=== PATIENT | female | born 1990 | race Caucasian/White ===

== ENCOUNTER → 2018-06-26 16:41 | Outpatient (CLI) | payer OTHER, SELFPAY ==
[2018-06-26 19:06] LABS: Color, Urine Yellow (Yellow); Glucose, Dipstick Normal (Normal); Ketone-Dipstick Negative (Negative); Leukocyte Esterase-Dipstick 500 /ul (Negative); Nitrite-Dipstick Negative (Negative); Occult Blood-Urine 10 /ul (Negative); Protein-Dipstick Negative (Negative); Urine Bilirubin Dipstick Negative (Negative); Urine Clarity Clear (Clear); Urine Urobilinogen Normal (Normal)
[2018-06-26 19:13] LABS: White Blood Cells 50-100 SEEN /hpf (0-5)
[2018-06-26 19:14] LABS: Squamous Epithelial Cells - UA 0-5 SEEN /hpf (5-10)
[2018-06-26 19:15] LABS: Bacteria 1+ /hpf (None Seen); Mucous, Urine 1+ /hpf (<or=2+); Red Blood Cells-Urine 0-5 SEEN /hpf (0-5)
== END ==
PROVIDERS: Visit Provider Physician Assistant Surgical
DX: R39.15 Urgency of urination (principal); R30.0 Dysuria
CPT/HCPCS: 81001; 87086; 87088; 87186

== ENCOUNTER → 2018-06-29 11:54 | Outpatient (CLI) | payer OTHER, SELFPAY ==
[2018-06-29 13:24] LABS: hCG Titer Quant., Serum 80 mIU/mL (<9 non-preg)
== END ==
PROVIDERS: Visit Provider Obstetrics & Gynecology
DX: N91.2 Amenorrhea, unspecified (principal)
CPT/HCPCS: 36415; 84702

== ENCOUNTER → 2018-07-01 16:07 | Outpatient (CLI) | payer OTHER, SELFPAY ==
[2018-07-01 18:33] LABS: hCG Titer Quant., Serum 218 mIU/mL (<9 non-preg)
== END ==
PROVIDERS: Visit Provider Obstetrics & Gynecology
DX: N91.2 Amenorrhea, unspecified (principal)
CPT/HCPCS: 36415; 84702

== ENCOUNTER → 2018-07-31 11:53 | Outpatient (CLI) | payer OTHER, SELFPAY ==
--- NOTE | 2018-07-31 11:57 | US_ITS ---
STUDY: FIRST TRIMESTER OBSTETRICAL ULTRASOUND REASON FOR EXAM: Female, 27 years old. VIABILITY- LMP UNKNOWN- SPOTTING LMP: TECHNIQUE: Transvaginal TECHNICAL QUALITY: Adequate. PRIOR ULTRASOUND: None. FINDINGS: There is visualization of a single gestational sac in a normal intrauterine position. The mean sac diameter (MSD) measures 16mm, indicating an estimated gestational age (EGA) of 6 weeks, 4 days. The gestational sac shape is within normal limits. There is a visualized yolk sac. The yolk sac measures 22mm. The placenta is non-visualized. There is visualization of an embryo with no cardiac activity, consistent with intrauterine demise. The estimated gestation age (EGA) by US is 6 weeks, 3 days. The estimated date of delivery (SHILPA) by US is 6.4.19. The uterus measures [id number]. There is no demonstrated uterine fibroid. The cervix is closed. The right ovary measures [id number]. There is no right ovarian cyst. There is no visualized right adnexal mass or complex lesion. The left ovary measures [id number]. There is no left ovarian cyst. There is no visualized left adnexal mass or complex lesion. There is no fluid in the cul de sac. US/Transvaginal w/Preg US IMPRESSION: There is visualization of an embryo with no cardiac activity, consistent with intrauterine demise. N.B. : The above information has been verbally conveyed by Barrett Osborne MD to BERTRAM Gamble, on 07/31/2018 18:06:31 (ET). Electronically Signed: Barrett Osbrone MD at 17:29 EDT , Service support ,
== END ==
PROVIDERS: Referring Provider Obstetrics & Gynecology; Visit Provider Obstetrics & Gynecology
DX: O46.90 Antepartum hemorrhage, unspecified, unspecified trimester (principal); Z3A.00 Weeks of gestation of pregnancy not specified
CPT/HCPCS: 76817

== ENCOUNTER → 2019-04-13 | Outpatient (CLI) | payer OTHER, SELFPAY ==
[2019-04-13 12:25] VITALS: BMI 22.6
[2019-04-13 20:02] LABS: Chlamydia Trachomatis by PCR Negative (Negative); Neisserai gonorrhoeae by PCR Negative (Negative); Probe Check PASS; Sample Adequacy Control PASS; Specimen Processing Control PASS
[2019-04-23 15:21] LABS: HPV Reflexed? NOT INDICATED
== END | disposition home or self-care (01) ==
LOC: LABSPEC 17:14
PROVIDERS: Referring Provider Obstetrics & Gynecology; Visit Provider Obstetrics & Gynecology
DX: Z34.90 Encounter for supervision of normal pregnancy, unspecified, unspecified trimester (principal)
CPT/HCPCS: 87086; 87088; 87491; 87591; 87624; 88175; G0145

== ENCOUNTER → 2019-04-22 | Outpatient (CLI) | payer OTHER, SELFPAY ==
[2019-04-22 10:21] VITALS: BMI 22.6
== END | disposition home or self-care (01) ==
LOC: LABSPEC 14:05
PROVIDERS: Visit Provider Nurse Practitioner Family
DX: J02.9 Acute pharyngitis, unspecified (principal)
CPT/HCPCS: 87081

== ENCOUNTER → 2019-05-17 | Outpatient (CLI) | payer OTHER, SELFPAY ==
[2019-05-17 11:29] VITALS: BMI 22.6
[2019-05-17 12:43] LABS: Absolute Lymphocyte Count 1.71 X10^3/uL (0.83-4.51); Absolute Neutrophil Count 8.3 X10^3/uL (2.0-7.7); Basophil# 0.03 X10^3/uL; Basophil% 0.3 % (0-1); Eosinophil# 0.05 X10^3/uL; Eosinophils% 0.5 % (0-5); Hematocrit 40.8 % (37-47); Hemoglobin 13.5 g/dL (12.0-15.0); Lymphocyte # 1.71 X10^3/ul (4.0); Lymphocyte % 16.2 % (19-41); Mean Corp Hgb Conc 33.1 g/dL (32-36); Mean Corpuscular Hgb 30.5 pg (27.0-32.0); Mean Corpuscular Volume 92.3 fL (81-99); Monocyte# 0.48 X10^3/uL; Monocyte% 4.5 % (0-10); NRBC Flagged by Analyzer 0 % (0-5); Neutrophil # 8.25 X10^3/uL (2.7-7.7); Neutrophil % 77.9 % (47-70); Platelet Count 163 K/mm3 (150-450); RBC Distribution Width CV 12.5 % (11.6-14.6); RBC Distribution Width SD 42.5 fl (35.1-43.9); Red Blood Count 4.42 M/mm3 (4.2-5.4); White Blood Count 10.6 K/mm3 (4.4-11.0)
[2019-05-18 14:46] LABS: HIV - WCH Preliminary Reactive (Nonreactive); Rubella IgG 89.1 IU/mL
[2019-05-20 13:35] LABS: Rapid Plasmin Reagin (RPR) NONREACTIVE (NONREACTIVE)
== END | disposition home or self-care (01) ==
LOC: LAB 12:17
PROVIDERS: Referring Provider Obstetrics & Gynecology; Visit Provider Obstetrics & Gynecology
DX: Z34.90 Encounter for supervision of normal pregnancy, unspecified, unspecified trimester (principal)
CPT/HCPCS: 36415; 85025; 86592; 86703; 86762; 86850; 86900

== ENCOUNTER → 2019-05-19 | Outpatient (CLI) | payer OTHER, SELFPAY ==
[2019-05-17 11:29] VITALS: BMI 22.6
== END | disposition home or self-care (01) ==
PROVIDERS: Referring Provider Obstetrics & Gynecology; Visit Provider Obstetrics & Gynecology
DX: Z21 Asymptomatic human immunodeficiency virus [HIV] infection status (principal)
CPT/HCPCS: 36415

== ENCOUNTER → 2019-05-25 | Outpatient (CLI) | payer OTHER, SELFPAY ==
[2019-05-17 11:29] VITALS: BMI 22.6
== END | disposition home or self-care (01) ==
PROVIDERS: Referring Provider Obstetrics & Gynecology; Visit Provider Obstetrics & Gynecology
DX: Z21 Asymptomatic human immunodeficiency virus [HIV] infection status (principal)
CPT/HCPCS: 36415

== ENCOUNTER → 2019-08-12 09:10 | Outpatient (CLI) | payer OTHER, SELFPAY ==
[2019-08-12 09:08] VITALS: BMI 22.6
[2019-08-12 09:52] LABS: Absolute Lymphocyte Count 1.44 X10^3/uL (0.83-4.51); Absolute Neutrophil Count 9.6 X10^3/uL (2.0-7.7); Basophil# 0.04 X10^3/uL; Basophil% 0.3 % (0-1); Eosinophil# 0.06 X10^3/uL; Eosinophils% 0.5 % (0-5); Hematocrit 37.7 % (37-47); Hemoglobin 12.7 g/dL (12.0-15.0); Lymphocyte # 1.44 X10^3/ul (4.0); Lymphocyte % 12.3 % (19-41); Mean Corp Hgb Conc 33.7 g/dL (32-36); Mean Corpuscular Hgb 31.4 pg (27.0-32.0); Mean Corpuscular Volume 93.3 fL (81-99); Mean Platelet Vol. 8.9 fl (6.2-12.0); Monocyte% 4.3 % (0-10); NRBC Flagged by Analyzer 0 % (0-5); Neutrophil # 9.59 X10^3/uL (2.7-7.7); Neutrophil % 81.9 % (47-70); Platelet Count 190 K/mm3 (150-450); RBC Distribution Width CV 12.5 % (11.6-14.6); RBC Distribution Width SD 43.2 fl (35.1-43.9); Red Blood Count 4.04 M/mm3 (4.2-5.4); White Blood Count 11.7 K/mm3 (4.4-11.0)
[2019-08-12 10:05] LABS: Glucose Challenge Gest 1H 50g 89 mg/dL (70-140)
[2019-08-12 10:58] LABS: Hepatitis B Surface Antigen Non-Reactive (Nonreactive)
== END ==
PROVIDERS: Referring Provider Obstetrics & Gynecology; Visit Provider Obstetrics & Gynecology
DX: Z34.02 Encounter for supervision of normal first pregnancy, second trimester (principal); Z3A.26 26 weeks gestation of pregnancy
CPT/HCPCS: 36415; 82950; 85025; 87340

== ENCOUNTER → 2019-10-19 13:46 | Outpatient (CLI) | payer OTHER, SELFPAY ==
[2019-10-19 09:41] VITALS: BMI 22.6
== END ==
PROVIDERS: Referring Provider Obstetrics & Gynecology; Visit Provider Obstetrics & Gynecology
DX: Z34.90 Encounter for supervision of normal pregnancy, unspecified, unspecified trimester (principal)
CPT/HCPCS: 87081

== ENCOUNTER → 2019-11-03 16:18 | Outpatient (CLI) | payer OTHER, SELFPAY ==
[2019-10-29 09:04] VITALS: BMI 22.6
--- NOTE | 2019-11-03 16:19 | US_ITS ---
STUDY: SECOND AND THIRD TRIMESTER OBSTETRICAL ULTRASOUND REASON FOR EXAM: Female, 29 years old SMALL FOR DATES LMP: February 06, 2019. TECHNIQUE: Transabdominal TECHNICAL QUALITY: Adequate. PRIOR ULTRASOUND: None. FINDINGS: There is a single intrauterine fetus. The fetus is in a cephalic presentation. There is demonstrated cardiac activity with a heart rate of 128 bpm. There is a normal amniotic fluid volume. The largest amniotic fluid pocket measures 5.2 cm. The amniotic fluid index (RINKU) is 12.2 cm. The placenta is anterior in location and is not low lying. There are Grade 2 placental changes. The cervix measures 4.2 cm in length. The adnexal regions are not visualized. BIOMETRY: BPD: 8.7 cm: 35 weeks, 0 days HC: 33.3 cm: 38 weeks, 1 days AC: 34.9 cm: 38 weeks, 6 days FL: 7.6 cm: 38 weeks, 5 days CI: 77% FL/BPD: 87% FL/HC: FL/AC: 22% HC/AC: 0.96 age by current US: 37 weeks, 5 days. SHILPA by current US: November 19, 2019. Estimated weight: 3411 grams, +/- 498 grams, 56 %. Age by LMP: 38 weeks, 4 days. SHILPA by LMP: November 13, 2019. US/OB Limited With Biometrics IMPRESSION: Single live intrauterine gestation with a mean gestational age of 38 weeks and 4 days. The measurements obtained today fall within the normal expected range. Electronically Signed: Gustavo Corcoran, at 15:19 EST , Service support ,
== END ==
PROVIDERS: Referring Provider Obstetrics & Gynecology; Visit Provider Obstetrics & Gynecology
DX: O26.843 Uterine size-date discrepancy, third trimester (principal); Z3A.38 38 weeks gestation of pregnancy
CPT/HCPCS: 76816

== ENCOUNTER 2019-11-19 16:05 | Inpatient (IN) | payer OTHER, SELFPAY ==
[2019-09-20 08:28] VITALS: BMI 22.6
[2019-11-18 09:09] VITALS: BMI 22.6
[2019-11-19 16:40] VITALS: BMI 25.7
[2019-11-19] MEDS: 0.9% Saline Lock 10 ML Syringe IV (16:50)
[2019-11-19 17:12] LABS: Absolute Lymphocyte Count 1.48 X10^3/uL (0.83-4.51); Absolute Neutrophil Count 15.7 X10^3/uL (2.0-7.7); Basophil# 0.05 X10^3/uL; Basophil% 0.3 % (0-1); Eosinophil# 0.02 X10^3/uL; Eosinophils% 0.1 % (0-5); Hematocrit 40.7 % (37-47); Hemoglobin 13.5 g/dL (12.0-15.0); Lymphocyte # 1.48 X10^3/ul (4.0); Mean Corp Hgb Conc 33.2 g/dL (32-36); Mean Corpuscular Hgb 29.7 pg (27.0-32.0); Mean Corpuscular Volume 89.5 fL (81-99); Mean Platelet Vol. 10.3 fl (6.2-12.0); Monocyte# 0.99 X10^3/uL; Monocyte% 5.4 % (0-10); NRBC Flagged by Analyzer 0 % (0-5); Neutrophil # 15.71 X10^3/uL (2.7-7.7); Neutrophil % 85.4 % (47-70); Platelet Count 207 K/mm3 (150-450); RBC Distribution Width CV 13.1 % (11.6-14.6); RBC Distribution Width SD 42.7 fl (35.1-43.9); Red Blood Count 4.55 M/mm3 (4.2-5.4); White Blood Count 18.4 K/mm3 (4.4-11.0)
--- NOTE | 2019-11-19 17:58 | PCM.HP.OB ---
- Problem List (1) Status: Acute Qualifiers: Comment: genetic, carrier, and ntd screening discussed. HIV RNA negative. Normal Anatomy (2) Rh negative status during Status: Acute Qualifiers: Comment: given Rhogam at 28 weeks (3) Supervision of normal Status: Acute Qualifiers: Comment: PRR SHILPA 11/13/19 Chucho History Date of Admission: 11/19/19 Final SHILPA: 11/13/19 Gestational age: 40 Weeks and 6 Days History of this : This is a 29 year-old, at 40 weeks gestational age presents IAL 5 cm dilated, some vb no lof good fm regular ctx. Allergies amoxicillin Allergy (Verified 11/18/19 09:09) Other Home Medications: Home Medications vitamin#30 30 mg iron-10 mg iron-folic acid 1 mg-omg3 capsule cap PO cap 04/13/19 Smoking Status: Never smoker Alcohol: None Number of Fetus(es): 1 NST - FHR Rate Baby A Baseline: 130 Variability:: Moderate Accelerations:: 15 x 15 Decelerations:: None NST Reactive:: Yes FHR Category:: Category I Uterine Activity:: q 2-4 History Past Pregnancies: Past Pregnancies previous early SAB Labs: Mom's Labs & Results 11/19/19 11/19/19 16:50 16:50 WBC 18.4 H RBC 4.55 Hgb 13.5 Hct 40.7 MCV 89.5 MCH 29.7 MCHC 33.2 RDW Std Deviation 42.7 RDW Coeff of Heidi 13.1 Plt Count 207 MPV 10.3 Immature Gran % (Auto) 0.800 Neut % (Auto) 85.4 H Lymph % (Auto) 8.0 L Ellis % (Auto) 5.4 Eos % (Auto) 0.1 Baso % (Auto) 0.3 Absolute Neuts (auto) 15.7 H Absolute Lymphs (auto) 1.48 Nucleated RBC % 0 Blood Type Pending Antibody Screen Pending Course Did the patient receive Yes care? Labs Blood Type: A RH: NEGATIVE RPR/VDRL/Syphilis Nonreactive Rubella status Immune HbSAg Negative Date Done: 08/12/19 Chlamydia Negative Gonorrhea Negative HIV/AIDS Non-Reactive Group B Strep: Not Done Current Obstetrical History Gestational Diabetes No Incompetent Cervix No Infertility No IUGR No Macrosomia No Hypertension/Pre-eclampsia No Placenta Previa/Abruption No PTL/PROM No Uterine anomaly No Oligohydramnios No Polyhydramnios No Multiple gestation No Past Medical History Asthma No Diabetes No Hypertension No Heart disease No Mitral valve prolapse No Neurologic/Seizure disorder/ No Migraines Kidney disease No Liver disease No Varicosities No Clotting disorders/Hx of DVT No Thyroid Dysfunction No Other medical diseases No Psychiatric disorders No Major trauma No Abnormal PAP smear No Sleep apnea No Mammogram in the last 2 years No Social History Marital Status: Alleged father Chucho Hx Smoking No Smoking Status Never smoker Expected Delivery Method: Spontaneous Vaginal Describe any other labor & delivery plans:: Expected Delivery Route/Plan. . Labor Preferences-. labor support person: Chucho. pain management options preferred: limited intervention. cut cord/dad catch: no. : yes. PP control planned: nuvaring. discussed possible routes of delivery and associated risks: []. special requests: [] Review of Systems Constitutional: Denies: Fever, Malaise Eyes: Denies: Blurred vision, Vision Change HEENT: Denies: Head Aches, Visual Changes Cardiovascular: Denies: Chest Pain, Palpitations Respiratory: Denies: Cough, Shortness of Breath, Wheezing Gastrointestinal: Denies: Abdominal Pain, Diarrhea, Nausea, Vomiting Genitourinary: Denies: Dysuria, Hematuria Musculoskeletal: Denies: Joint Pain, Muscle pain Skin: Denies: Lesions, Rash Neurological: Denies: Blurred vision, Focal weakness, Headaches Psychiatric: Denies: Anxiety, Depression Endocrine: Denies: Heat/ Cold Intolerance Hematologic/ Lymphatic: Denies: Easy Bruising, Easy Bleeding Physical Exam General: Alert, Cooperative, No apparent distress HEENT: Atraumatic, Normocephalic. Negative for: Thyromegaly, Lymphadenopathy Cardiovascular: Regular rate Lungs: Normal air movement Abdomen: Soft, Non Tender, Gravid Neurological: Deep Tendon Reflexes 2+/4 and Symmetrical, Neuro grossly intact. 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 Negative for: Vulvar lesions Estimated gestational size: Appropriate for gestational size Presentation: Cephalic Cervix Dilation (cm): 5 Assessment/Plan All Active Problems (Last Reviewed 11/18/19 @ 09:09 by Marilyn Schroeder) Rh negative status during (Acute) (Acute) Supervision of normal (Acute) Cystitis (Resolved) Incomplete (Resolved) This is a 29 year-old, , at 40 weeks 6d gestational age presents IAL. Patient presents IAL, plan expectant management for , pitocin/AROM PRN if needed. Pain management: minimal intervention GBS negative Management of any complications: None I have reviewed the [facility] and made any clinically relevant updates.
[2019-11-19] MEDS: Oxytocin 30 units/NS 500 ml 30 UNITS/500 ML IV.SOLN 334 UNITS IV (21:35)
--- NOTE | 2019-11-19 22:04 | PCM.OPRPT ---
Problem List (1) Status: Acute Qualifiers: Comment: genetic, carrier, and ntd screening discussed. HIV RNA negative. Normal Anatomy (2) Rh negative status during Status: Acute Qualifiers: Comment: given Rhogam at 28 weeks (3) Supervision of normal Status: Acute Qualifiers: Comment: PRR SHILPA 11/13/19 [place] Vaginal Delivery Maternal Presentation: Active Labor 29 yo @ 40w6d presents IAL Amniotic Membrane Rupture Type: Artificial Amniotic Fluid Description: Clear Final SHILPA: 11/13/19 Gestational age: 40 Weeks and 6 Days Date of Procedure: 11/19/19 Pre-Operative Diagnosis: ial Post-Operative Diagnosis: same Surgery/ Procedure Performed: Spontaneous Vaginal Delivery Type of Anesthesia: Local with 1% lidocaine Description of Procedure: Patient began pushing and delivered the head in the KEIKO presentation. The head was delivered atraumatically [and a loose nuchal cord ?1 was identified and easily reduced over the 's head]. The anterior and posterior shoulders delivered without complication followed by the rest of the infant and the infant was placed on the maternal abdomen. Delayed cord clamping was employed for approximately 60 seconds. Cord was clamped and cut and gentle traction was applied to the cord and the placenta delivered spontaneously immediately following it was noted to be intact with three-vessel cord. The perineum and vagina were inspected and noted to have a small second-degree perineal laceration that was injected with 1% lidocaine and repaired in the usual fashion with 3-0 Vicryl Rapide. EBL was 300 cc. Patient and infant tolerated delivery well. Presentation: KEIKO Placental Delivery Description: Spontaneous Placenta Disposition: [facility] Cord Vessel Description: 3 Vessels Cord Entanglement: Around neck x 1, loose Estimated Blood Loss: 300 A gender: Female Episiotomy Description: None Laceration: Perineal Extension/lac, 2nd degree Medications given after delivery: IV Pitocin Complications: None Multi Select Codes - Urinary/Genital Urinary/Genital CPT Codes: 97312 Vaginal Delivery [facility]
[2019-11-20] MEDS: 0.9% Saline Lock 10 ML Syringe IV (00:25)
[2019-11-20 03:46] VITALS: BP 116/67; PULSE 80; RESP 16; TEMP 36.6; O2SAT 97
--- NOTE | 2019-11-20 10:36 | PCM.PN.OB ---
Subjective: doing well no complaints pain controlled no CP SOB N V ambulating well tolerating po lochia moderate, going well - Physical Exam Vitals/I&O's: Vital Signs Temp Pulse Resp BP Pulse Ox 98 F 80 16 116/67 97 11/20/19 03:46 11/20/19 03:46 11/20/19 03:46 11/20/19 03:46 11/20/19 03:46 Oxygen Delivery Method Room Air Weight: 169 lb 3.2 oz Body Mass Index (BMI) 25.7 Intake and Output for Last 24 Hours 11/18/19 11/19/19 11/20/19 23:59 23:59 23:59 Intake Total 167 / 167 933 / 933 Output Total 1050 / 1050 Balance 167 / 167 -117 / -117 General: Alert, Oriented x3 Laboratory Results 11/19/19 16:50: WBC 18.4 H, RBC 4.55, Hgb 13.5, Hct 40.7, MCV 89.5, MCH 29.7, MCHC 33.2, RDW Std Deviation 42.7, RDW Coeff of Heidi 13.1, Plt Count 207, MPV 10.3, Immature Gran % (Auto) 0.800, Neut % (Auto) 85.4 H, Lymph % (Auto) 8.0 L, [place] % (Auto) 5.4, Eos % (Auto) 0.1, Baso % (Auto) 0.3, Absolute Neuts (auto) 15.7 H, Absolute Lymphs (auto) 1.48, Nucleated RBC % 0 11/19/19 16:50: Blood Type A NEGATIVE, Antibody Screen TNP 11/19/19 16:50: Antibody Screen NEGATIVE 11/19/19 23:03: Screen NEGATIVE, Baby's Blood Type A POSITIVE, Baby's ASYA NEGATIVE Current Medications Acetaminophen (Tylenol) 1,000 mg PO Q8H PRN PRN PRN Reason: Pain Score 1-3/10 Bisacodyl (Dulcolax) 10 mg RECTAL UD PRN PRN Reason: If no BM Dibucaine (Dibucaine) 1 applic TOPICAL TID PRN PRN; Protocol PRN Reason: Discomfort Hydrocortisone (Hytone) 1 applic TOPICAL TID PRN PRN; Protocol PRN Reason: Discomfort Methylergonovine Maleate (Methergine) 0.2 mg IM X1 PRN PRN Reason: Excess bleeding/uterine atony Naproxen (Naprosyn) 500 mg PO Q8H PRN PRN PRN Reason: Pain Score 1-3/10 Ondansetron HCl (Zofran) 4 mg IV Q4H PRN PRN PRN Reason: Nausea Oxycodone HCl (Oxyir) 5 - 10 mg PO Q4H PRN PRN PRN Reason: Pain Score 4-10/10 Senna/Docusate Sodium (Senokot-S, Rupali-Colace) 1 - 2 tablet PO DAILY PRN PRN PRN Reason: Constipation Simethicone (Mylicon) 80 mg PO PCHS PRN PRN Reason: Indigestion/Stomach pain Sodium Chloride () 5 - 15 ml IV UD PRN PRN Reason: SALINE FLUSH Last Admin: 11/20/19 00:25 Dose: 10 ml Documented by: Medical Necessity - Tobacco Use Smoking Status: Never smoker Assessment/Plan All Active Problems (Last Reviewed 11/18/19 @ 09:09 by Marilyn Schroeder) Rh negative status during (Acute) (Acute) Supervision of normal (Acute) Cystitis (Resolved) Incomplete (Resolved) s/p PPD # 2 1. routine post delivery care 2. breast feeding- support given 3. rh neg 4. rubella immune
[2019-11-20 11:00] VITALS: BP 104/62; PULSE 88; RESP 16; TEMP 37.3; O2SAT 96
[2019-11-20] MEDS: Acetaminophen 500 MG Tablet 1000 MG PO (11:02)
[2019-11-20 14:40] VITALS: BP 113/59; PULSE 100; TEMP 36.6; O2SAT 97
[2019-11-20] MEDS: Dibucaine 30 GM Tube 1 APPLIC TOPICAL (14:40)
[2019-11-20 18:00] VITALS: BP 120/76; PULSE 87; RESP 16; TEMP 37.2; O2SAT 97
[2019-11-20] MEDS: Naproxen 250 MG Tablet 500 MG PO (19:26)
[2019-11-20 20:50] VITALS: BP 109/59; PULSE 70; RESP 16; TEMP 36.3
[2019-11-21 01:36] VITALS: BP 112/76; PULSE 80; RESP 18; TEMP 36.7
--- NOTE | 2019-11-21 05:23 | DCINST_ITS ---
Discharge Diet: No Restrictions Discharge Activity: Return to Normal Activity, May not drive while taking narcotic pain medications., May Shower May resume sexual activity in: 4-6 weeks Call your doctor if your incision/area has: Continuous Slow Oozing, Sudden Increased Bleeding, Increased Pain/ Swelling, Increased Redness, Foul Smelling Discharge Additional Instructions: If you experience any of the following, contact your healthcare provider. * Bleeding that soaks a pad every hour for 2 hours * Fever 100.4 or higher * Unrelieved incision or abdominal pain * Swelling, redness, discharge or bleeding from your incision or episiotomy site * Your incision begins to separate * Problems urinating (including inability to urinate or burning while urinating). * Visual changes * Severe headache * Flu-like symptoms * Pain or redness in one of both of your breasts * Pain, warmth, tenderness or swelling in your legs, especially the calf area * Frequent nausea and vomiting * Symptoms of depression or anxiety If you experience any of the following, call 911 or go to the nearest Emergency Room. * Chest pain * Problems breathing * Seizure activity * Partial or complete paralysis of a body part, slurred speech, weakness or drooping of the face, or a sudden inability to walk or hold your balance Allergies/Adverse Reactions: Allergies amoxicillin Allergy (Verified 11/18/19 09:09) Other Medications to take at Discharge vitamin#30 30 mg iron-10 mg iron-folic acid 1 mg-omg3 capsule cap PO cap 04/13/19 Please Follow Up With: Bonnie Murray MD - [phone] When: Call to make an appointment with your doctor in 6 weeks. If you had elevated Blood pressure or 4th degree laceration you will need to be seen in 2 weeks. Primary Care Physician: Care Physician,No Primary [Primary Care Provider] - Test Results: Test results from this visit will be discussed in further detail at your follow- up appointment, if applicable.
--- NOTE | 2019-11-21 05:23 | PCM.PN.OB ---
Subjective: doing well no complaints pain controlled no CP SOB N V ambulating well tolerating po lochia moderate, going well - Physical Exam Vitals/I&O's: Vital Signs Temp Pulse Resp BP Pulse Ox 98.1 F 80 18 112/76 97 11/21/19 01:36 11/21/19 01:36 11/21/19 01:36 11/21/19 01:36 11/20/19 18:00 Oxygen Delivery Method Room Air Weight: 169 lb 3.2 oz Body Mass Index (BMI) 25.7 Intake and Output for Last 24 Hours 11/19/19 11/20/19 11/21/19 23:59 23:59 23:59 Intake Total 167 / 167 933 / 933 Output Total 1050 / 1050 Balance 167 / 167 -117 / -117 General: Alert, Oriented x3 Current Medications Acetaminophen (Tylenol) 1,000 mg PO Q8H PRN PRN PRN Reason: Pain Score 1-3/10 Last Admin: 11/20/19 11:02 Dose: 1,000 mg Documented by: Bisacodyl (Dulcolax) 10 mg RECTAL UD PRN PRN Reason: If no BM Dibucaine (Dibucaine) 1 applic TOPICAL TID PRN PRN; Protocol PRN Reason: Discomfort Last Admin: 11/20/19 14:40 Dose: 1 applicatio Documented by: Hydrocortisone (Hytone) 1 applic TOPICAL TID PRN PRN; Protocol PRN Reason: Discomfort Methylergonovine Maleate (Methergine) 0.2 mg IM X1 PRN PRN Reason: Excess bleeding/uterine atony Naproxen (Naprosyn) 500 mg PO Q8H PRN PRN PRN Reason: Pain Score 1-3/10 Last Admin: 11/20/19 19:26 Dose: 500 mg Documented by: Ondansetron HCl (Zofran) 4 mg IV Q4H PRN PRN PRN Reason: Nausea Oxycodone HCl (Oxyir) 5 - 10 mg PO Q4H PRN PRN PRN Reason: Pain Score 4-10/10 Senna/Docusate Sodium (Senokot-S, Rupali-Colace) 1 - 2 tablet PO DAILY PRN PRN PRN Reason: Constipation Simethicone (Mylicon) 80 mg PO PCHS PRN PRN Reason: Indigestion/Stomach pain Sodium Chloride () 5 - 15 ml IV UD PRN PRN Reason: SALINE FLUSH Last Admin: 11/20/19 00:25 Dose: 10 ml Documented by: Medical Necessity - Tobacco Use Smoking Status: Never smoker Assessment/Plan All Active Problems (Last Reviewed 11/18/19 @ 09:09 by Marilyn Schroeder) Rh negative status during (Acute) (Acute) Supervision of normal (Acute) Cystitis (Resolved) Incomplete (Resolved) s/p PPD # 2 1. routine post delivery care 2. breast feeding- support given 3. rh neg 4. rubella immune
--- NOTE | 2019-11-21 05:23 | PCM.DCVAG ---
Discharge Diet: No Restrictions Discharge Activity: Return to Normal Activity, May not drive while taking narcotic pain medications., May Shower May resume sexual activity in: 4-6 weeks Call your doctor if your incision/area has: Continuous Slow Oozing, Sudden Increased Bleeding, Increased Pain/ Swelling, Increased Redness, Foul Smelling Discharge Additional Instructions: If you experience any of the following, contact your healthcare provider. Bleeding that soaks a pad every hour for 2 hours Fever 100.4 or higher Unrelieved incision or abdominal pain Swelling, redness, discharge or bleeding from your incision or episiotomy site Your incision begins to separate Problems urinating (including inability to urinate or burning while urinating). Visual changes Severe headache Flu-like symptoms Pain or redness in one of both of your breasts Pain, warmth, tenderness or swelling in your legs, especially the calf area Frequent nausea and vomiting Symptoms of depression or anxiety If you experience any of the following, call 911 or go to the nearest Emergency Room. Chest pain Problems breathing Seizure activity Partial or complete paralysis of a body part, slurred speech, weakness or drooping of the face, or a sudden inability to walk or hold your balance Allergies/Adverse Reactions: Allergies amoxicillin Allergy (Verified 11/18/19 09:09) Other Medications to take at Discharge vitamin#30 30 mg iron-10 mg iron-folic acid 1 mg-omg3 capsule cap PO cap 04/13/19 Please Follow Up With: Bonnie Murray MD - [phone] When: Call to make an appointment with your doctor in 6 weeks. If you had elevated Blood pressure or 4th degree laceration you will need to be seen in 2 weeks. Primary Care Physician: Care Physician,No Primary [Primary Care Provider] - Test Results: Test results from this visit will be discussed in further detail at your follow-up appointment, if applicable.
[2019-11-21] MEDS: Naproxen 250 MG Tablet 500 MG PO (08:48)
[2019-11-21 09:22] VITALS: BP 116/78; PULSE 69; RESP 16; TEMP 36.7; O2SAT 97
[2019-11-21 09:27] VITALS: BP 116/78; PULSE 69; RESP 16; TEMP 36.7; O2SAT 97
== END 2019-11-21 09:45 | disposition home or self-care (01) | DRG 807 ==
LOC: WP 16:26
PROVIDERS: Admitting Provider Obstetrics & Gynecology; Referring Provider Obstetrics & Gynecology; Visit Provider Obstetrics & Gynecology
DX: O69.81X0 Labor and delivery complicated by cord around neck, without compression, not applicable or unspecified (principal); O70.1 Second degree perineal laceration during delivery; Z3A.40 40 weeks gestation of pregnancy; Z37.0 Single live birth
CPT/HCPCS: 59025; 59050; 85025; 85461; 86850; 86900; 86901; 90384; 99218; A4216; G0378; J2790

== ENCOUNTER → 2020-08-28 21:15 | Outpatient (CLI) | payer OTHER, SELFPAY | PROVIDERS: Referring Provider Obstetrics & Gynecology; Visit Provider Obstetrics & Gynecology | DX: O91.23 Nonpurulent mastitis associated with lactation (principal) | CPT/HCPCS: 96158 ==

== ENCOUNTER → 2020-09-04 | Outpatient (CLI) | payer OTHER, SELFPAY | END | disposition home or self-care (01) | LOC: LABSPEC 17:49 | PROVIDERS: Referring Provider Physician Assistant; Visit Provider Physician Assistant | DX: U07.1 COVID-19 (principal) | CPT/HCPCS: 87635; C9803; U0003 ==

== ENCOUNTER → 2021-02-16 18:02 | Outpatient (CLI) | payer OTHER, SELFPAY ==
[2021-02-16 16:15] VITALS: BMI 21.9
[2021-02-16 18:03] LABS: Bacteria 0 SEEN /hpf (None Seen); Mucous, Urine 0 SEEN /hpf (<or=2+)
[2021-02-16 18:19] LABS: Color, Urine Yellow (Yellow); Glucose, Dipstick Normal (Normal); Ketone-Dipstick Negative (Negative); Leukocyte Esterase-Dipstick 500 /ul (Negative); Nitrite-Dipstick Negative (Negative); Occult Blood-Urine Negative /ul (Negative); Protein-Dipstick Negative (Negative); Urine Bilirubin Dipstick Negative (Negative); Urine Clarity Sl. Cloudy (Clear); Urine Urobilinogen Normal (Normal)
[2021-02-16 18:40] LABS: Amorphous Sediment 1+ URATE; Red Blood Cells-Urine 0-5 SEEN /hpf (0-5); Squamous Epithelial Cells - UA 0-5 SEEN /hpf (5-10); White Blood Cells 10-25 SEEN /hpf (0-5)
== END ==
PROVIDERS: Visit Provider Physician Assistant Surgical
DX: N39.0 Urinary tract infection, site not specified (principal)
CPT/HCPCS: 81001; 87086; 87088

== ENCOUNTER → 2021-03-28 14:01 | Outpatient (CLI) | payer OTHER, SELFPAY ==
[2021-03-28 13:28] VITALS: BMI 21.9
[2021-03-28 15:07] LABS: Absolute Lymphocyte Count 1.78 X10^3/uL (0.83-4.51); Absolute Neutrophil Count 3.8 X10^3/uL (2.0-7.7); Basophil# 0.03 X10^3/uL; Basophil% 0.5 % (0-1); Eosinophil# 0.07 X10^3/uL; Eosinophils% 1.2 % (0-5); Hematocrit 42.6 % (37-47); Hemoglobin 13.8 g/dL (12.0-15.0); Lymphocyte # 1.78 X10^3/ul (0.83-4.51); Lymphocyte % 29.6 % (19-41); Mean Corp Hgb Conc 32.4 g/dL (32-36); Mean Corpuscular Hgb 30.3 pg (27.0-32.0); Mean Corpuscular Volume 93.6 fL (81-99); Mean Platelet Vol. 9.6 fl (6.2-12.0); Monocyte# 0.35 X10^3/uL; Monocyte% 5.8 % (0-10); NRBC Flagged by Analyzer 0 % (0-5); Neutrophil # 3.77 X10^3/uL (2.7-7.7); Neutrophil % 62.7 % (47-70); Platelet Count 223 K/mm3 (150-450); RBC Distribution Width CV 12.2 % (11.6-14.6); RBC Distribution Width SD 42.1 fl (35.1-43.9); Red Blood Count 4.55 M/mm3 (4.2-5.4)
[2021-03-28 16:22] LABS: ALB/GLOB Ratio 1.2 RATIO (0.9-2.4); AST(SGOT) 17 U/L (15-37); Alanine Aminotransfer ALT/SGPT 27 U/L (13-56); Alkaline Phosphatase 52 U/L (45-117); Anion Gap 6 (5-15); BUN 16 mg/dL (7-18); Chloride 108 mmol/L (98-107); Cholesterol 187 mg/dL (200); Creatinine, Serum 0.94 mg/dL (0.55-1.02); EST Glomerular Filtration Rate 74 mL/min (>60); Est Glom Filt Rate - Afr Amer 90 mL/min (>60); Globulin 3.4 g/dL (2.2-4.2); Glucose 91 mg/dL (74-106); High Density Lipoprotein 69 mg/dL; Potassium 3.8 mmol/L (3.5-5.1); Protein, Total 7.4 g/dL (6.4-8.2); Sodium Level 141 mmol/L (136-145); Triglycerides 142 mg/dL; Very Low Density Lipoprotein 28 mg/dL (5-40)
== END ==
PROVIDERS: PCP Internal Medicine; Referring Provider Internal Medicine; Visit Provider Internal Medicine
DX: Z00.00 Encounter for general adult medical examination without abnormal findings (principal)
CPT/HCPCS: 36415; 80053; 80061; 85025

== ENCOUNTER → 2021-06-25 16:21 | Outpatient (CLI) | payer OTHER, SELFPAY ==
[2021-06-25 16:25] LABS: Mucous, Urine 0 SEEN /hpf (<or=2+)
[2021-06-25 16:29] LABS: Glucose, Dipstick Normal (Normal); Ketone-Dipstick Negative (Negative); Leukocyte Esterase-Dipstick 500 /ul (Negative); Nitrite-Dipstick Positive (Negative); Occult Blood-Urine 250 /ul (Negative); Protein-Dipstick Negative (Negative); Specific Gravity, Urine 1.005 (1.002-1.030); Urine Bilirubin Dipstick Negative (Negative); Urine Urobilinogen Normal (Normal)
[2021-06-25 16:34] LABS: Color, Urine Yellow (Yellow)
[2021-06-25 16:35] LABS: Urine Clarity Sl Cloudy (Clear)
[2021-06-25 16:51] LABS: Red Blood Cells-Urine 0-5 SEEN /hpf (0-5); Squamous Epithelial Cells - UA 0-5 SEEN /hpf (5-10); White Blood Cells 10-25 SEEN /hpf (0-5)
[2021-06-25 16:52] LABS: Bacteria 1+ /hpf (None Seen)
== END ==
PROVIDERS: PCP Internal Medicine; Referring Provider Physician Assistant Surgical; Visit Provider Physician Assistant Surgical
DX: R30.9 Painful micturition, unspecified (principal)
CPT/HCPCS: 81001; 87077; 87086; 87088; 87186

== ENCOUNTER → 2022-03-01 | Outpatient (CLI) | payer OTHER, SELFPAY ==
[2022-03-02 01:42] LABS: Mucous, Urine 0 SEEN /hpf (<or=2+); Red Blood Cells-Urine 0 SEEN /hpf (0-5)
[2022-03-02 01:47] LABS: Color, Urine Yellow (Yellow); Glucose, Dipstick Normal (Normal); Ketone-Dipstick Negative (Negative); Leukocyte Esterase-Dipstick 500 /ul (Negative); Nitrite-Dipstick Negative (Negative); Occult Blood-Urine 10 /ul (Negative); Protein-Dipstick Negative (Negative); Specific Gravity, Urine 1.015 (1.002-1.030); Urine Bilirubin Dipstick Negative (Negative); Urine Clarity Clear (Clear); Urine Urobilinogen Normal (Normal)
[2022-03-02 01:55] LABS: Bacteria 1+ /hpf (None Seen); Squamous Epithelial Cells - UA 0-5 SEEN /hpf (5-10); White Blood Cells 10-25 SEEN /hpf (0-5)
== END | disposition home or self-care (01) ==
PROVIDERS: PCP Internal Medicine; Referring Provider Physician Assistant Surgical; Visit Provider Physician Assistant Surgical
DX: N39.0 Urinary tract infection, site not specified (principal)
CPT/HCPCS: 81001; 87086

== ENCOUNTER → 2022-04-16 | Outpatient (CLI) | payer OTHER, SELFPAY ==
[2022-04-16 11:16] LABS: Absolute Lymphocyte Count 1.75 X10^3/uL (0.83-4.51); Absolute Neutrophil Count 2.8 X10^3/uL (2.0-7.7); Basophil# 0.05 X10^3/uL; Eosinophil# 0.06 X10^3/uL; Eosinophils% 1.2 % (0-5); Hematocrit 43.1 % (37-47); Hemoglobin 14.3 g/dL (12.0-15.0); Lymphocyte # 1.75 X10^3/ul (0.83-4.51); Lymphocyte % 35.4 % (19-41); Mean Corp Hgb Conc 33.2 g/dL (32-36); Mean Corpuscular Hgb 31.1 pg (27.0-32.0); Mean Corpuscular Volume 93.7 fL (81-99); Mean Platelet Vol. 9.5 fl (6.2-12.0); Monocyte# 0.32 X10^3/uL; Monocyte% 6.5 % (0-10); NRBC Flagged by Analyzer 0 % (0-5); Neutrophil # 2.75 X10^3/uL (2.7-7.7); Neutrophil % 55.7 % (47-70); Platelet Count 207 K/mm3 (150-450); RBC Distribution Width CV 12.2 % (11.6-14.6); RBC Distribution Width SD 42.4 fl (35.1-43.9); White Blood Count 4.9 K/mm3 (4.4-11.0)
[2022-04-16 11:50] LABS: Prolactin 8.5 ng/mL; Thyroid Stim Hormone (TSH) 1.48 uIU/mL (0.358-3.74)
[2022-04-18 15:55] LABS: HPV APTIMA, High Risk Negative (Negative)
== END | disposition home or self-care (01) ==
LOC: LAB 09:35
PROVIDERS: PCP Internal Medicine; Referring Provider Obstetrics & Gynecology; Visit Provider Obstetrics & Gynecology
DX: Z12.4 Encounter for screening for malignant neoplasm of cervix (principal); N39.0 Urinary tract infection, site not specified; N93.9 Abnormal uterine and vaginal bleeding, unspecified
CPT/HCPCS: 36415; 84146; 84443; 85025; 87086; 87088; 87624; 88175; G0145

== ENCOUNTER → 2022-04-18 | Outpatient (CLI) | payer OTHER, SELFPAY ==
--- NOTE | 2022-04-18 12:30 | US_ITS ---
STUDY: ULTRASOUND OF THE FEMALE PELVIS - COMPLETE REASON FOR EXAM: Female, 31 years old. aub LMP: 04/14/2022 TECHNIQUE: Transabdominal and Transvaginal TECHNICAL QUALITY: Adequate. COMPARISON: None. FINDINGS: The uterus is anteverted and is in a midline position. The uterus measures 7.8 x 4.7 x 3.9 cm. Normal uterine cervix. The endometrium measures 6 mm in thickness, and is hyperechoic. There is no demonstrated endometrial mass. There is no demonstrated myometrial mass. I.U.D. - The patient does not have an I.U.D. The right ovary is visualized. The right ovary measures 3.6 x 2.6 x 2.0 cm. There is no right ovarian cyst or ovarian mass. There is no visualized right adnexal mass or complex lesion. There is normal arterial and normal venous vascularity. The left ovary is visualized. The left ovary measures 3.3 x 2.0 x 1.8 cm. There is no left ovarian cyst or ovarian mass. There is no visualized left adnexal mass or complex lesion. There is normal arterial and normal venous vascularity. There is no fluid in the cul-de-sac. The pre void volume of the bladder was ml. The post void volume of the bladder was ml. Polycystic ovary disease: No. US/Transvaginal Non- IMPRESSION: Normal female pelvis. Electronically Signed: Zhen Mathis MD at 13:52 EDT ,
--- NOTE | 2022-04-18 12:30 | US_ITS ---
STUDY: ULTRASOUND OF THE FEMALE PELVIS - COMPLETE REASON FOR EXAM: Female, 31 years old. aub LMP: 04/14/2022 TECHNIQUE: Transabdominal and Transvaginal TECHNICAL QUALITY: Adequate. COMPARISON: None. FINDINGS: The uterus is anteverted and is in a midline position. The uterus measures 7.8 x 4.7 x 3.9 cm. Normal uterine cervix. The endometrium measures 6 mm in thickness, and is hyperechoic. There is no demonstrated endometrial mass. There is no demonstrated myometrial mass. I.U.D. - The patient does not have an I.U.D. The right ovary is visualized. The right ovary measures 3.6 x 2.6 x 2.0 cm. There is no right ovarian cyst or ovarian mass. There is no visualized right adnexal mass or complex lesion. There is normal arterial and normal venous vascularity. The left ovary is visualized. The left ovary measures 3.3 x 2.0 x 1.8 cm. There is no left ovarian cyst or ovarian mass. There is no visualized left adnexal mass or complex lesion. There is normal arterial and normal venous vascularity. There is no fluid in the cul-de-sac. The pre void volume of the bladder was ml. The post void volume of the bladder was ml. Polycystic ovary disease: No. US/Pelvic (Non ) IMPRESSION: Normal female pelvis. Electronically Signed: Zhen Mathis MD at 13:52 EDT ,
== END | disposition home or self-care (01) ==
LOC: US 12:28
PROVIDERS: PCP Internal Medicine; Referring Provider Obstetrics & Gynecology; Visit Provider Obstetrics & Gynecology
DX: N93.9 Abnormal uterine and vaginal bleeding, unspecified (principal)
CPT/HCPCS: 76830; 76856

== ENCOUNTER → 2022-05-03 | Outpatient (CLI) | payer OTHER, SELFPAY ==
--- NOTE | 2022-05-03 15:20 | US_ITS ---
STUDY: RENAL ULTRASOUND - COMPLETE REASON FOR EXAM: Female, 31 years old. UTI. TECHNIQUE: Ultrasound evaluation of the kidneys was performed with real-time and static durand-scale imaging. COMPARISON: None. FINDINGS: RIGHT KIDNEY: Normal location of the right kidney, which is normal in size. The right kidney measures 10.7 cm. There is a normal cortex of the right kidney. The renal cortex measures 1.0 cm. There is no right renal mass or cyst. There are no right renal calculi. There is no right hydronephrosis. DISTAL RIGHT URETER: There is non-visualization of the distal right ureter. There is no demonstrated right ureterovesical junction calculus. There is a visualized right ureteral jet. LEFT KIDNEY: Normal location of the left kidney, which is normal in size. The left kidney measures 10.1 cm. There is a normal cortex of the left kidney. The renal cortex measures 1.1 cm. There is no left renal mass or cyst. There are no left renal calculi. There is no left hydronephrosis. DISTAL LEFT URETER: There is non-visualization of the distal left ureter. There is no demonstrated left ureterovesical junction calculus. There is a visualized left ureteral jet. BLADDER: The distended urinary bladder has a volume of 90 ml. There is a normal wall thickness of the distended urinary bladder. There is no demonstrated mass within the urinary bladder. There are no demonstrated bladder calculi. US/Kidney and Bladder IMPRESSION: Normal ultrasound of the kidneys and urinary bladder. Electronically Signed: Melchor Mcqueen DO at 23:51 EDT ,
== END | disposition home or self-care (01) ==
LOC: US 15:19
PROVIDERS: PCP Internal Medicine; Referring Provider Urology; Visit Provider Urology
DX: N39.0 Urinary tract infection, site not specified (principal)
CPT/HCPCS: 76770

== ENCOUNTER → 2022-08-23 | Outpatient (CLI) | payer OTHER, SELFPAY ==
[2022-08-23 12:43] LABS: Absolute Lymphocyte Count 1.94 X10^3/uL (0.83-4.51); Basophil# 0.02 X10^3/uL; Basophil% 0.3 % (0-1); Eosinophil# 0.01 X10^3/uL; Eosinophils% 0.1 % (0-5); Hemoglobin 14.3 g/dL (12.0-15.0); Lymphocyte # 1.94 X10^3/ul (0.83-4.51); Lymphocyte % 26.7 % (19-41); Mean Corp Hgb Conc 33.3 g/dL (32-36); Mean Corpuscular Hgb 30.9 pg (27.0-32.0); Mean Corpuscular Volume 92.9 fL (81-99); Mean Platelet Vol. 9.5 fl (6.2-12.0); Monocyte% 4.1 % (0-10); NRBC Flagged by Analyzer 0 % (0-5); Neutrophil # 4.98 X10^3/uL (2.7-7.7); Neutrophil % 68.5 % (47-70); Platelet Count 266 K/mm3 (150-450); RBC Distribution Width CV 11.9 % (11.6-14.6); RBC Distribution Width SD 40.9 fl (35.1-43.9); Red Blood Count 4.63 M/mm3 (4.2-5.4); White Blood Count 7.3 K/mm3 (4.4-11.0)
[2022-08-23 13:09] LABS: ALB/GLOB Ratio 1.2 RATIO (0.9-2.4); AST(SGOT) 18 U/L (15-37); Alanine Aminotransfer ALT/SGPT 25 U/L (13-56); Albumin, Serum 3.9 g/dL (3.2-5.0); Alkaline Phosphatase 41 U/L (45-117); Anion Gap 6 (5-15); BUN 13 mg/dL (7-18); BUN/Creat Ratio 13.6 RATIO (10-20); Calcium,Total 9.5 mg/dL (8.5-10.1); Chloride 106 mmol/L (98-107); Creatinine, Serum 0.95 mg/dL (0.55-1.02); EST Glomerular Filtration Rate 72 mL/min (>60); Est Glom Filt Rate - Afr Amer 87 mL/min (>60); Globulin 3.2 g/dL (2.2-4.2); Glucose 80 mg/dL (74-106); Potassium 4.1 mmol/L (3.5-5.1); Protein, Total 7.1 g/dL (6.4-8.2); Sodium Level 138 mmol/L (136-145)
== END | disposition home or self-care (01) ==
LOC: BIMLAB 09:09
PROVIDERS: PCP Internal Medicine; Referring Provider Internal Medicine; Visit Provider Internal Medicine
DX: Z00.00 Encounter for general adult medical examination without abnormal findings (principal)
CPT/HCPCS: 36415; 80053; 85025

== ENCOUNTER → 2022-09-09 | Outpatient (CLI) | payer OTHER, SELFPAY ==
--- NOTE | 2022-09-09 14:54 | ECHOD_ITS ---
Reason For Study: Family Hx Procedure This was a 2D Doppler, Color Flow transthoracic echocardiogram. Exam performed in department. Left Ventricle Normal LV size. Left ventricular systolic function is normal. The estimated ejection fraction is 55 %. No regional wall motion abnormalities noted. Right Ventricle Normal RV size. Normal systolic function. Atria Normal left atrium. Normal right atrium. Mitral Valve Normal mitral valve. Tricuspid Valve Normal tricuspid valve. Aortic Valve Trisinus/trileaflet aortic valve. Pulmonic Valve Normal pulmonic valve. Great Vessels Normal aortic root. The pulmonary artery is normal size. Normal inferior vena cava. Pericardium/Pleural No pericardial effusion. MMode/2D Measurements & Calculations LVIDd: 5.1 cm IVSd: 0.85 cm Ao root diam: 3.3 cm LVIDs: 3.1 cm LVPWd: 0.62 cm LA dimension: 3.2 cm RVDd: 3.1 cm FS: 38.9 % LAV(MOD-bp): 51.4 ml LA A4 area: 17.6 cm2 RA A4 area: 15.2 cm2 LAV(MOD-bp) Indexed: 27.9 ml/m2 LAV(MOD-sp2): 52.0 ml LAV(MOD-sp4): 46.4 ml Time Measurements MV dec time: 0.19 sec Doppler Measurements & Calculations MV E max shorty: 71.9 cm/sec Lat Peak E' Shorty: 18.8 cm/sec Med Peak E' Shorty: 17.6 cm/sec MV A max shorty: 50.0 cm/sec E/E' lat: 3.8 E/E' med: 4.1 MV E/A: 1.4 MV V2 max: 84.9 cm/sec MV P1/2t max shorty: 83.4 cm/sec Ao V2 max: 130.9 cm/sec MV max P.9 mmHg MV P1/2t: 66.5 msec Ao max P.9 mmHg MV V2 mean: 42.8 cm/sec MV dec slope: 367.2 cm/sec2 Ao V2 mean: 95.4 cm/sec MV mean P.89 mmHg MVA(P1/2t): 3.3 cm2 Ao mean P.1 mmHg MV V2 VTI: 22.9 cm Ao V2 VTI: 28.7 cm LV V1 max: 101.5 cm/sec PA V2 max: 78.9 cm/sec LV V1 max P.1 mmHg LV V1 mean P.5 mmHg LV V1 mean: 75.4 cm/sec LV V1 VTI: 20.4 cm ECHO/Echo Complete Interpretation Summary Normal LV size. Left ventricular systolic function is normal. The estimated ejection fraction is 55 %. Structurally normal valves. Ordering Physician: Vinicius Laguna Referring Physician: Vinicius Laguna Performed By: Michael Madera RCS
== END | disposition home or self-care (01) ==
LOC: CVS 14:53
PROVIDERS: PCP Internal Medicine; Referring Provider Internal Medicine; Visit Provider Internal Medicine
DX: Z82.49 Family history of ischemic heart disease and other diseases of the circulatory system (principal)
CPT/HCPCS: 93306

== ENCOUNTER → 2022-10-22 | Outpatient (CLI) | payer OTHER, SELFPAY ==
--- NOTE | 2022-10-22 16:27 | US_ITS ---
STUDY: FIRST TRIMESTER OBSTETRICAL ULTRASOUND REASON FOR EXAM: Female, 32 years old Viability LMP: August 14, 2022. TECHNIQUE: Transvaginal TECHNICAL QUALITY: Adequate. PRIOR ULTRASOUND: None. FINDINGS: There is visualization of a single gestational sac in a normal intrauterine position. The mean sac diameter (MSD) measures 4.7 cm, indicating an estimated gestational age (EGA) of 10 weeks, 2 days. The gestational sac shape is within normal limits. There is 2.6 cm hypoechoic region consistent with subchorionic hemorrhage. There is a visualized yolk sac. The yolk sac measures 0.5 cm.. The placenta is non-visualized. There is visualization of a live embryo. The crown-rump length (CRL) measures 4.0 cm, indicating an estimated gestational age (EGA) of 10 weeks, 5 days. There is demonstrated cardiac activity with a heart rate of 154 bpm. The estimated gestation age (EGA) by LMP is 9 weeks, 6 days. The estimated date of delivery (SHILPA) by LMP is May 21, 2023. The estimated gestation age (EGA) by US is 10 weeks, 4 days. The estimated date of delivery (SHILPA) by US is May 16, 2023.. The uterus measures 11.6 x 8.2 x 7.7 cm. There is no demonstrated uterine fibroid. The cervix is closed. The right ovary measures 2.9 x 2.0 x 2.0 cm. There is no right ovarian cyst. There is no visualized right adnexal mass or complex lesion. The left ovary measures 3.7 x 2.3 x 2.1 cm. There is 1.9 cm left ovarian cyst. There is no visualized left adnexal mass or complex lesion. There is no fluid in the cul de sac. US/Transvaginal w/Preg US IMPRESSION: Single intrauterine gestation 10 weeks 4 days with estimated due date May 16, 2023. There is subchorionic hemorrhage. Left ovarian cyst. Electronically Signed: Ramu North MD at 22:14 EST ,
== END | disposition home or self-care (01) ==
LOC: US 15:50
PROVIDERS: PCP Internal Medicine; Referring Provider Obstetrics & Gynecology; Visit Provider Obstetrics & Gynecology
DX: O20.8 Other hemorrhage in early pregnancy (principal); N83.202 Unspecified ovarian cyst, left side; Z3A.10 10 weeks gestation of pregnancy; N91.2 Amenorrhea, unspecified
CPT/HCPCS: 76817

== ENCOUNTER → 2022-10-29 | Outpatient (CLI) | payer OTHER, SELFPAY ==
[2022-10-29 16:36] LABS: Absolute Neutrophil Count 7.1 X10^3/uL (2.0-7.7); Basophil# 0.03 X10^3/uL; Basophil% 0.3 % (0-1); Eosinophil# 0.05 X10^3/uL; Eosinophils% 0.5 % (0-5); Hematocrit 40.7 % (37-47); Hemoglobin 13.6 g/dL (12.0-15.0); Mean Corp Hgb Conc 33.4 g/dL (32-36); Mean Corpuscular Hgb 30.2 pg (27.0-32.0); Mean Corpuscular Volume 90.2 fL (81-99); Mean Platelet Vol. 9.1 fl (6.2-12.0); Monocyte# 0.46 X10^3/uL; Monocyte% 4.9 % (0-10); NRBC Flagged by Analyzer 0 % (0-5); Neutrophil # 7.07 X10^3/uL (2.7-7.7); Neutrophil % 74.9 % (47-70); Platelet Count 243 K/mm3 (150-450); RBC Distribution Width CV 12.8 % (11.6-14.6); RBC Distribution Width SD 41.9 fl (35.1-43.9); Red Blood Count 4.51 M/mm3 (4.2-5.4); White Blood Count 9.5 K/mm3 (4.4-11.0)
[2022-10-29 19:07] LABS: HIV - WCH Preliminary Reactive (Nonreactive); Hepatitis B Surface Antigen Non-Reactive (Nonreactive); Hepatitis C Antibody Non-Reactive (Nonreactive); Rubella IgG Reactive (Nonreactive); Syphilis Antibodies Non-reactive
== END | disposition home or self-care (01) ==
PROVIDERS: Obstetrics & Gynecology; PCP Internal Medicine; Referring Provider Obstetrics & Gynecology; Visit Provider Obstetrics & Gynecology
DX: Z34.90 Encounter for supervision of normal pregnancy, unspecified, unspecified trimester (principal)
CPT/HCPCS: 36415; 84702; 85025; 86703; 86762; 86780; 86803; 86850; 86900; 86901; 87340

== ENCOUNTER → 2022-10-31 | Outpatient (CLI) | payer OTHER, SELFPAY | END | disposition home or self-care (01) | LOC: LAB 15:54 | PROVIDERS: Obstetrics & Gynecology; PCP Internal Medicine; Visit Provider Obstetrics & Gynecology | DX: O09.90 Supervision of high risk pregnancy, unspecified, unspecified trimester (principal); N92.0 Excessive and frequent menstruation with regular cycle | CPT/HCPCS: 36415; 84702 ==

== ENCOUNTER → 2022-11-05 | Outpatient (CLI) | payer OTHER, SELFPAY ==
[2022-11-08 07:08] LABS: Chlamydia By Nucleic Acid AMP Negative (Negative)
[2022-11-08 12:51] LABS: Gonococcus By Nucleic Acid AMP Negative (Negative)
== END | disposition home or self-care (01) ==
PROVIDERS: PCP Internal Medicine; Visit Provider Obstetrics & Gynecology
DX: Z34.90 Encounter for supervision of normal pregnancy, unspecified, unspecified trimester (principal)
CPT/HCPCS: 87491; 87591

== ENCOUNTER → 2022-11-13 | Outpatient (CLI) | payer OTHER, SELFPAY | END | disposition home or self-care (01) | LOC: LAB 13:17 | PROVIDERS: PCP Internal Medicine; Referring Provider Nurse Practitioner Women's Health; Visit Provider Obstetrics & Gynecology | DX: O26.899 Other specified pregnancy related conditions, unspecified trimester (principal); N92.0 Excessive and frequent menstruation with regular cycle; Z67.91 Unspecified blood type, Rh negative | CPT/HCPCS: 36415; 84702; 86850; 86900; 86901 ==

== ENCOUNTER → 2022-11-18 | Outpatient (CLI) | payer OTHER, SELFPAY ==
--- NOTE | 2022-11-18 16:31 | US_ITS ---
STUDY: SECOND AND THIRD TRIMESTER OBSTETRICAL ULTRASOUND - LIMITED REASON FOR EXAM: Female, 32 years old wellbeing LMP: 08/07/2022. PRIOR ULTRASOUND: Comparison is made with prior study 10/22/2022. TECHNIQUE: Transabdominal TECHNICAL QUALITY: Adequate. FINDINGS: There is a single intrauterine fetus. The fetus is in a transverse lie with the head on the maternal right side. There is demonstrated cardiac activity with a heart rate of 143 bpm. There is a normal amniotic fluid volume. The largest amniotic fluid pocket measures 4.2 cm x 2.8 cm. The amniotic fluid index (RINKU) is within normal limits. The placenta is posterior with a marginal previa. There are Grade 0 placental changes. The cervix measures 5.6 cm in length. BIOMETRY: BPD: 2.95 cm: 15 weeks, 3 days HC: 10.85 cm: 15 weeks, 1 days AC: 8.5 cm: 14 weeks, 3 days FL: 1.38 cm: 14 weeks, 0 days Age by LMP: 14 weeks, 5 days. SHILPA by LMP: 05/14/2023. age by prior US: 14 weeks, 3 days. SHILPA by prior US: 05/16/2023. age by current US: 15 weeks, 0 days. SHILPA by current US: 05/12/2023. Estimated weight: 100 grams, +/- 15 grams, 24.6 percentile. US/OB Limited With Biometrics IMPRESSION: Single live intrauterine gestation with a mean gestational age of 14 weeks and 3 days. The measurements obtained today fall within the normal expected range. Electronically Signed: Gustavo Corcoran MD at 10:16 [facility] ,
== END | disposition home or self-care (01) ==
PROVIDERS: PCP Internal Medicine; Referring Provider Nurse Practitioner Women's Health; Visit Provider Nurse Practitioner Women's Health
DX: N92.0 Excessive and frequent menstruation with regular cycle (principal); O26.899 Other specified pregnancy related conditions, unspecified trimester; Z67.91 Unspecified blood type, Rh negative; Z3A.12 12 weeks gestation of pregnancy
CPT/HCPCS: 76816

== ENCOUNTER → 2023-02-19 | Outpatient (CLI) | payer OTHER, SELFPAY ==
[2023-02-19 15:42] LABS: Absolute Lymphocyte Count 1.75 X10^3/uL (0.83-4.51); Absolute Neutrophil Count 8.5 X10^3/uL (2.0-7.7); Basophil# 0.03 X10^3/uL; Basophil% 0.3 % (0-1); Eosinophil# 0.04 X10^3/uL; Eosinophils% 0.4 % (0-5); Hematocrit 36.8 % (37-47); Hemoglobin 12.4 g/dL (12.0-15.0); Lymphocyte # 1.75 X10^3/ul (0.83-4.51); Lymphocyte % 16.2 % (19-41); Mean Corp Hgb Conc 33.7 g/dL (32-36); Mean Corpuscular Hgb 31.7 pg (27.0-32.0); Mean Corpuscular Volume 94.1 fL (81-99); Mean Platelet Vol. 9.8 fl (6.2-12.0); Monocyte# 0.44 X10^3/uL; Monocyte% 4.1 % (0-10); NRBC Flagged by Analyzer 0 % (0-5); Neutrophil # 8.45 X10^3/uL (2.7-7.7); Neutrophil % 78.3 % (47-70); Platelet Count 176 K/mm3 (150-450); RBC Distribution Width CV 13.1 % (11.6-14.6); RBC Distribution Width SD 44.6 fl (35.1-43.9); Red Blood Count 3.91 M/mm3 (4.2-5.4); White Blood Count 10.8 K/mm3 (4.4-11.0)
[2023-02-19 16:32] LABS: Glucose Challenge Gest 1H 50g 142 mg/dL (70-140)
[2023-02-19 20:12] LABS: HIV - WCH Preliminary Reactive (Nonreactive); Syphilis Antibodies Non-reactive
== END | disposition home or self-care (01) ==
PROVIDERS: PCP Internal Medicine; Referring Provider Advanced Practice Midwife; Visit Provider Advanced Practice Midwife
DX: O09.90 Supervision of high risk pregnancy, unspecified, unspecified trimester (principal)
CPT/HCPCS: 36415; 82950; 85025; 86703; 86780; 86900; 86901

== ENCOUNTER → 2023-02-25 | Outpatient (CLI) | payer OTHER, SELFPAY ==
[2023-02-25 08:44] LABS: Glucose GTT-Gestation. Fasting 81 mg/dL (<105)
[2023-02-25 10:05] LABS: Glucose GTT-Gestational 1 Hr 129 mg/dL (<190)
[2023-02-25 10:55] LABS: Glucose GTT-Gestational 2 Hr 113 mg/dL (<165)
[2023-02-25 11:44] LABS: Glucose GTT-Gestational 3 Hr 94 L (<145)
== END | disposition home or self-care (01) ==
LOC: LAB 08:02
PROVIDERS: PCP Internal Medicine; Referring Provider Advanced Practice Midwife; Visit Provider Advanced Practice Midwife
DX: Z13.1 Encounter for screening for diabetes mellitus (principal)
CPT/HCPCS: 36415; 82951; 82952

== ENCOUNTER → 2023-04-16 | Outpatient (CLI) | payer OTHER, SELFPAY | END | disposition home or self-care (01) | LOC: LABSPEC 10:05 | PROVIDERS: PCP Internal Medicine; Referring Provider Obstetrics & Gynecology; Visit Provider Obstetrics & Gynecology | DX: O09.90 Supervision of high risk pregnancy, unspecified, unspecified trimester (principal); Z3A.00 Weeks of gestation of pregnancy not specified | CPT/HCPCS: 87081 ==

== ENCOUNTER → 2023-05-21 | Outpatient (CLI) | payer OTHER, SELFPAY ==
--- NOTE | 2023-05-21 18:27 | US_ITS ---
STUDY: SECOND AND THIRD TRIMESTER OBSTETRICAL ULTRASOUND - LIMITED REASON FOR EXAM: Female, 32 years old. GROWTH PRIOR ULTRASOUND: None. TECHNIQUE: Transabdominal TECHNICAL QUALITY: Adequate. FINDINGS: There is a single intrauterine fetus. The fetus is in a cephalic presentation. There is demonstrated cardiac activity with a heart rate of 124 bpm. There is a normal amniotic fluid volume. The largest amniotic fluid pocket measures 5.9 cm. The amniotic fluid index (RINKU) is 11.6 cm. The placenta is posterior in location and is not low lying. There are Grade 2 placental changes. The cervix is obscured by overlying bowel gas and cannot be identified. . BIOMETRY: BPD: 91 mm: 37 weeks, 0 days HC: 341 mm: 39 weeks, 3 days AC: 347 mm: 38 weeks, 4 days FL: 74 mm: 38 weeks, 0 days CI: NA FL/AC: 21 FL/BPD: 81 HC/AC: .98 age by current US: 37 weeks, 2 days. SHILPA by current US: 8.21.23. Estimated weight: 3453 grams, +/- 518 grams, %. Age by LMP: 41 weeks, 0 days. SHILPA by LMP: 7.26.23 US/OB Limited With Biometrics IMPRESSION: There is a single live intrauterine with a heart rate of 124 bpm. Electronically Signed: Barrett Osborne MD at 20:47 EDT ,
== END | disposition home or self-care (01) ==
PROVIDERS: PCP Internal Medicine; Visit Provider Obstetrics & Gynecology
DX: Z36.9 Encounter for antenatal screening, unspecified (principal)
CPT/HCPCS: 76816

== ENCOUNTER 2023-05-23 07:05 | Inpatient (IN) | payer OTHER, SELFPAY ==
[2023-05-23] VITALS (50 sets, daily range): BP systolic 95–134; BP diastolic 51–84; PULSE 61–104; TEMP 36.5–37.4; O2SAT 89–100; BMI 27.3
[2023-05-23] MEDS: Lactated Ringers 1,000 ML 50 ML IV (08:05)
[2023-05-23 08:22] LABS: Absolute Lymphocyte Count 1.95 X10^3/uL (0.83-4.51); Absolute Neutrophil Count 6.6 X10^3/uL (2.0-7.7); Basophil# 0.05 X10^3/uL; Basophil% 0.5 % (0-1); Eosinophil# 0.06 X10^3/uL; Eosinophils% 0.7 % (0-5); Hematocrit 37.1 % (37-47); Hemoglobin 12.4 g/dL (12.0-15.0); Lymphocyte # 1.95 X10^3/ul (0.83-4.51); Lymphocyte % 21.2 % (19-41); Mean Corp Hgb Conc 33.4 g/dL (32-36); Mean Corpuscular Hgb 30.3 pg (27.0-32.0); Mean Corpuscular Volume 90.7 fL (81-99); Mean Platelet Vol. 10.6 fl (6.2-12.0); Monocyte# 0.44 X10^3/uL; Monocyte% 4.8 % (0-10); NRBC Flagged by Analyzer 0 % (0-5); Neutrophil # 6.64 X10^3/uL (2.7-7.7); Neutrophil % 72.1 % (47-70); Platelet Count 186 K/mm3 (150-450); RBC Distribution Width SD 46.6 fl (35.1-43.9); Red Blood Count 4.09 M/mm3 (4.2-5.4); White Blood Count 9.2 K/mm3 (4.4-11.0)
[2023-05-23] MEDS: Oxytocin 15 Units/NS 250ml 15 UNITS/250 ML IV.SOLN 2 UNITS IV (08:25)
[2023-05-23 09:18] LABS: Syphilis Antibodies Non-reactive
--- NOTE | 2023-05-23 09:23 | HP.PCM.OB_ITS ---
HPI - General General Date of Admission: 05/23/23 HPI Narrative JENNIFER HARRIS, is a 32 F who presents for IOL secondary to postdates. no vb lof admits good fm Maternal Data Information SHILPA Calculator Estimated Delivery Date Method Current WG Current Estimate 05/14/23 LMP (Certain) 41w 2d PFSH PFS Medical History (Updated 05/23/23 @ 09:[address] Bonnie Murray MD) Family history of aortic aneurysm Headache Marginal placenta previa depression Home Medications Lactobacillus rhamnosus GG 5 billion cell oral powder packet ([employer] Probiotics) PO 03/28/21 [History Last Taken Unknown] PNV 153-FA 400 mcg-om3 35 mg-dha 25 mg-epa 5 mg-fish oil chew tablet tab PO 10/29/22 [History Last Taken Unknown] ascorbic acid (vitamin C) 500 mg capsule mg PO 10/29/22 [History Last Taken Unknown] cholecalciferol (vitamin D3) 125 mcg (5,000 unit) capsule 125 mcg PO DAILY 11/05/22 [History Last Taken Unknown] breast pump #1 ea 03/07/23 [Rx Last Taken Unknown] magnesium oxide 400 mg PO DAILY 03/07/23 [History Last Taken Unknown] Allergy/AdvReac Type Severity Reaction Status Date / Time amoxicillin Allergy Other Verified 05/19/23 12:13 Family History Mother Brain cancer Grandfather Alcohol abuse Myocardial infarction Hyperlipemia Diabetes Brother Anxiety and depression Grandmother Breast cancer Other Hypertension Social History adopted: No household members: spouse and children housing: house number of children: 1 current occupational status: employed current occupation: [employer] current occupational exposures/hazards: No pets and animals: No history of recent travel: No sexually active: Yes Smoking Status: Never smoker alcohol intake: former details: social not while substance use type: does not use well-balanced diet: daily or most days caffeine: Yes Type: coffee Number of servings: 1 eating out: rarely or never during the past year weight has: remained stable what type of physical activity do you participate in: running, yoga and weight training frequency: 3-4 times per week duration: 30-45 minutes/day chip/sabianism: Confucianist seatbelt use: always do you feel safe at home: Yes 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 Date Name GA/Weeks Outcome Route Bth Weight Infant Gen Labor Lgth Anesthesia Del Locatn Provider FOB 07/03/18 miscarriage 6-8 weeks 11/19/19 Mildred 40 live - full term Female loca l [facility] Visit Details Expected Delivery Route/Plan Labor Preferences- CB/BF classes: denies. labor support person: Chucho labor intervention preferences: minimal intervention, intermittent ausculation. pain management options preferred: unmedicated cut cord/dad catch: no thanks : yes PP control planned:vasectomy discussed possible routes of delivery and associated risks: [] special requests: [] Plans Covid status: discussed Flu vaccine: discussed Tdap vaccine:obtained. Rhogam: obtained LARC form signed: obtained. Problem list reviewed and updated with the most current plan of care details and appropriate orders placed. Relevant counseling for the gestational age provided. Continue routine care and follow up unless otherwise noted in visit notes/problem list details OB Flowsheet Initial Weight: Not Recorded Date -?-?-?-?-?-?-?-?-?-?-?-?- EGA Weight BP Urine Prot -?-?-?-?-?-?-?-?-?-?-?-?- Glucose FHR FuHt Pres Dilation -?-?-?-?-?-?--?-?-?-?-?-?- Effaced St Visit Note 11/05/22 -?-?-?-?-?-?-?-?-?-?-?-?- 12w 6d 156 lb 102/67 -?-?-?-?-?-?-?-?-?-?-?-?- 160 -?-?-?-?-?-?-?-?-?-?-?-?- SM- CRL cons wit h lmp 11/13/22 -?-?-?-?-?-?-?-?-?-?-?-?- 14w 0d 153 lb 4 oz 108/72 -?-?-?-?-?-?-?-?-?-?-?-?- 160 -?-?-?-?-?-?-?-?-?-?-?-?- -Work in for [employer]aden [employer]. Had pink spotting on toilet tissue. Br US confirm live IUP and FHT. Reviewed bleeding precautions. 11/19/22 -?-?-?-?-?-?-?-?-?-?-?-?- 14w 6d 152 lb 123/78 -?-?-?-?-?-?-?-?-?-?-?-?- 171 -?-?--?-?-?-?-?-?-?-?-?-?- JV- no further s potting. formal scan yesterday normal. anatomy ultrasound ordered. 01/15/23 -?-?-?-?-?-?-?-?-?-?-?-?- 23w 0d 164 lb 4 oz 105/69 Nega tive -?-?-?-?-?-?-?-?-?-?-?-?- Negative 145 23 -?-?-?-?-?-?-?-?-?-?-?-?- kw- no vb/ctx/lo f. +FM. Rhogam discussed for next visit. feeling increased stress and anxiety, requesting note to reduce stress at work. 02/19/23 -?-?-?-?-?-?-?-?-?-?-?-?- 28w 0d 171 lb 2 oz 106/75 Nega tive -?-?-?-?-?-?-?-?-?-?-?-?- Negative 150 29 -?-?-?-?-?-?-?-?-?-?-?-?- JV- GCT pending. normal cbc. hiv pending. rhogam done. no complaints. previa resolved. 03/07/23 -?-?-?-?-?--?-?-?-?-?-?-?- 30w 2d 172 lb 120/60 Negative -?-?-?-?-?-?-?-?-?-?-?-?- Negative 140 31 -?-?-?-?-?-?-?-?-?-?-?-?- KW- +FM. no lof/ vb/ctx. labs discussed. no concerns today. tdap last visit KW- +FM. no lof/vb/ctx. labs discussed. no concerns today. tdap last visit. LArc done and order for breast pump given. 03/21/23 -?--?-?-?-?-?-?-?-?-?-?-?- 32w 2d 173 lb 4 oz 122/82 Trac e -?-?-?-?-?-?-?-?-?-?-?-?- Negative 138 32 -?-?-?-?-?-?-?-?-?-?-?-?- LC- no ctx/lof/v b. good fm. no concerns. 04/02/23 -?-?-?-?-?-?-?-?-?-?-?-?- 34w 0d 174 lb 4 oz 118/74 Nega tive -?-?-?-?-?-?-?-?-?-?-?-?- Negative 134 34 -?-?-?-?-?-?-?-?-?-?-?-?- LC- no ctx/lof/v b. good fm. no complaints or concerns. reviewed gbs 04/16/23 -?-?-?-?-?-?-?-?-?-?-?-?- 36w 0d 177 lb 2 oz 104/66 Nega tive -?-?-?-?-?-?-?-?-?-?-?-?- Negative 145 36 0 -?-?-?-?-?-?-?-?-?-?-?-?- JV- gbs collecte d. pt is going to [place] for a weekend trip. recommendations are no travel more than 2 hrs away from nearest hospital after 36 weeks. pt will map out her drive and take necessary precautions. 04/21/23 -?-?-?-?-?-?-?-?-?-?-?-?- 36w 5d 179 lb 8 oz 106/80 Trac e -?-?-?-?-?-?-?-?-?-?-?-?- Negative 135 36 Cephalic -?-?-?-?-?-?-?-?-?-?-?-?- KW- +fm. no lof/ vb/ctx. reviewed labs 04/30/23 -?-?-?-?-?-?-?-?-?-?-?-?- 38w 0d 178 lb 8 oz 100/69 Nega tive -?-?-?-?-?-?-?-?-?-?-?-?- Negative 145 38 Cephalic 0 -?-?-?-?-?-?-?-?-?-?-?-?- LC- no lof/vb/ct x good fm. 05/07/23 -?-?-?-?-?-?-?-?-?-?-?-?- 39w 0d 180 lb 4 oz 111/76 Nega tive -?-?-?-?-?-?-?-?-?-?-?-?- Negative 130 39 Cephalic 1 -?-?-?-?-?-?-?-?-?-?-?-?- 60 -3 LC- LC-no lof/vb/ctx. good fm. n o concerns. 05/14/23 -?-?-?-?-?-?-?-?-?-?-?-?- 40w 0d 178 lb 4 oz 112/73 Nega tive -?-?-?-?-?-?-?-?-?-?-?-?- Negative 130 39 Cephalic 1 -?-?-?-?-?-?-?-?-?-?-?-?- 70 -3 JV- pt jones s not want membrane sweep and is hesitant to IOL. She is only agreeable to next friday IOL. plan for NST after 41 weeks .wants to come in Friday for membrane sweep. 05/19/23 -?-?-?-?-?-?-?-?-?-?-?-?- 40w 5d 181 lb 120/77 -?-?-?-?-?-?-?-?-?-?-?-?- 135 38 Cephalic 2 -?-?-?-?-?-?-?-?-?-?-?-?- 60 -2 SM- no vb lof good fm no regular ctx plan ultrasound friday IOL friday NST FHR Rate Baby A Baseline: 130 Variability:: Moderate Accelerations:: 15 x 15 Decelerations:: None NST Reactive:: Yes FHR Category:: Category I Uterine Activity:: irregular ROS Constitutional Constitutional: Reports systems reviewed and no addt'l complaints, except as documented Eyes Eyes: Denies change in vision ENT HEENT: Reports systems reviewed and no addt'l complaints, except as documented; Denies headache(s) Cardiovascular Cardiovascular: Reports systems reviewed and no addt'l complaints, except as documented; Denies chest pain or dyspnea Respiratory/Chest Respiratory/Chest: Reports systems reviewed and no addt'l complaints, except as documented Gastrointestinal Gastrointestinal: Reports systems reviewed and no addt'l complaints, except as documented; Denies abdominal pain Genitourinary Genitourinary: Reports systems reviewed and no addt'l complaints, except as documented, contractions Details: present (irregular) and movement Details: present; Denies dysuria or genital lesions Musculoskeletal Musculoskeletal: Reports systems reviewed and no addt'l complaints, except as documented Neurologic Neurologic: Reports systems reviewed and no addt'l complaints, except as documented Endocrine Endocrinology: Reports systems reviewed and no addt'l complaints, except as documented Vital Signs Vital Signs Vital Signs: 05/23/23 07:29 05/23/23 07:29 05/23/23 09:12 Temperature Temperature Source Pulse Rate 102 H Blood Pressure 117/71 119/81 H BP Systolic 117 119 BP Diastolic 71 81 Pulse Ox 05/23/23 09:12 05/23/23 09:12 05/23/23 09:12 Temperature Temperature Source Tympanic Pulse Rate 75 Blood Pressure BP Systolic BP Diastolic Pulse Ox 98 05/23/23 09:12 05/23/23 09:12 Temperature 97.7 F L Temperature Source Pulse Rate Blood Pressure BP Systolic BP Diastolic Pulse Ox 98 Weight Weight: 180 lb Body Mass Index (BMI) 27.3 Physical Exam Const alert, oriented x3, no apparent distress and healthy appearing HEENT normocephalic and moist oral mucous membranes Head and Scalp: atraumatic Neck full ROM, no lymphadenopathy, supple and thyroid normal General: trachea midline Lymph Lymphatic: no lymphadenopathy noted Chest inspection of chest normal Resp normal respiratory effort Cardio regular rate GI normal to inspection, nondistended, normoactive bowel sounds, soft to palpation and non-tender Inspection: gravid external exam normal Manual OB Exam: estimated gestational size appropriate, presentation cephalic, dilated, effaced and station Extremity normal to inspection General Extremity: Negative for edema Skin no rashes or lesions noted Neuro no focal motor deficits and deep tendon reflexes 2+ bilaterally Motor Exam: strength 5/5 throughout and clonus absent Psych mental status grossly normal Labs Labs Labs: Blood Type A NEGATIVE Antibody Screen NEGATIVE Hct 37.1 % (37-47) Hgb 12.4 g/dL (12.0-15.0) Obstetrics US Syphilis Total Ab Non-reactive Rubella IgG Antibody Reactive (Nonreactive) Hep Bs Antigen Non-Reactive (Nonreactive) Chlamydia DNA ([place]) Negative (Negative) Neisseria gonorrhoeae DNA ([place]) Negative (Negative) HIV 1&2 Antibody Preliminary Reactive (Nonre active) H Glucose 1 Hr 50 gm 142 mg/dL (70-140) H Rhogam given: Yes Miscellaneous Test Assessment & Plan (1) Rh negative state in antepartum period: COMMENT: Rhogam @ 28 weeks & PRN Bleeding (2) Supervision of high risk , antepartum: COMMENT: PRR , SHILPA 05/14/23, girl DENISSE Levy, Chucho (3) : QUALIFIERS: Weeks of gestation: 40 weeks Qualified Code(s): Z3A.40 - 40 weeks gestation of COMMENT: Neg GBS. normal 3 hour GCT, declined genetic, ntd, & carrier testing (4) Post term at 41 weeks gestation: PLAN: Plan Patient presents IOL, plan management for with pitocin/AROM. Pain management: plans epidural. GBS negative. Management of any complications: none I have reviewed the [facility] and made any clinically relevant updates.
[2023-05-23] MEDS: LACTATED RINGERS 500 ML 999 ML IV (18:32)
[2023-05-23] MEDS: fentaNYL-bupivacaine (epidural) 100 ML BAG EPIDURAL (19:15)
--- NOTE | 2023-05-23 21:04 | OP.PCM_ITS ---
Assessment & Plan (1) Post term at 41 weeks gestation: (2) Rh negative state in antepartum period: COMMENT: Rhogam @ 28 weeks & PRN Bleeding (3) Supervision of high risk , antepartum: COMMENT: PRR , SHILPA 05/14/23, girl DENISSE Levy, Chucho (4) : QUALIFIERS: Weeks of gestation: 40 weeks Qualified Code(s): Z3A.40 - 40 weeks gestation of COMMENT: Neg GBS. normal 3 hour GCT, declined genetic, ntd, & carrier testing (5) Vaginal delivery: COMMENT: sm iol postdates 41 girl Maternal Data Information SHILPA Calculator Estimated Delivery Date Method Current WG Current Estimate 05/14/23 LMP (Certain) 41w 2d Vaginal Delivery Operative Information Pre-Operative Diagnosis: see a/p diagnoses Post-Operative Diagnosis: same Surgery / Procedure Performed: Spontaneous Vaginal Delivery Type of Anesthesia: Epidural Special Medications: none Estimated Blood Loss: 200 Fluids Replaced: crystalloid Findings Description of Procedure: Patient began pushing and delivered the head in the [MISHA] presentation. The head was delivered atraumatically [and a loose nuchal cord ?1 was identified and the delivered through without complication]. The anterior and posterior shoulders delivered without complication followed by the rest of the and the was placed on the maternal abdomen. Delayed cord clamping was employed for approximately 60 seconds. Cord was clamped and cut and gentle traction was applied to the cord and the placenta delivered spontaneously immediately following it was noted to be intact with three-vessel cord. The perineum and vagina were inspected and [noted to have a [] degree perineal laceration which was repaired in the usual fashion with 3-0 vicryl rapide.] [noted to have no laceration]. EBL was [200 cc]. Patient and infant tolerated delivery well. Amniotic Fluid Description: Clear Placental Delivery Description: Spontaneous Placenta Disposition: [facility] Cord Vessel Description: 3 Vessels Cord Entanglement: None Delayed Cord Clamping: Yes Post Vaginal Delivery Medications Given After Delivery: IV Pitocin Episiotomy Description: None Complication Complications: None Procedures Urinary/Genital [id number]: [id number] Vaginal Delivery [facility]
--- NOTE | 2023-05-23 21:07 | DCINST_ITS ---
Discharge Instructions Diet Discharge Diet: No restrictions Activity Discharge Activity: Return to Normal Activity, May Not Drive (while taking narcotic pain medications.) and May Shower May resume sexual activity in: 4-6 weeks Dressing / Incision Call your doctor if your incision/area has: Continuous Slow Oozing, Sudden Increased Bleeding, Increased Pain/ Swelling, Increased Redness and Foul Smelling Discharge Follow Up Care Please Follow Up With: Bonnie Murray MD When: Call [phone] to make an appointment with your doctor in 6 weeks. If you had elevated blood pressure or 4th degree laceration, you will need to be seen in 2 weeks. Test Results: Test results from this visit will be discussed in further detail at your follow- up appointment, if applicable. Discharge Plan Admission Admit Date/Time: 05/23/23 07:05 Attending Provider: Bonnie Murray Primary Care Provider: Vinicius Laguna Consulting Providers: Kesha Stiles Discharge Orders/Prescriptions Prescriptions: No [employer] Pro[employer]otics 5 billion cell powder in packet PO PNV [id number] 400 mcg-35 mg- 25 mg-5 mg tablet,chewable PO ascorbic acid (vitamin C) 500 mg capsule PO cholecalciferol (vitamin D3) 125 mcg (5,000 unit) capsule 125 mcg PO DAILY magnesium oxide 400 mg magnesium tablet 400 mg PO DAILY (DME) breast pump Device See Rx Instructions .Route Qty: 1 0RF Rx Instructions: As directed [id number] [One-A-Day -1] PO Referrals / Follow Up: Vinicius Laguna MD [Primary Care Provider] -
[2023-05-23] MEDS: Oxytocin 15 Units/NS 250ml 15 UNITS/250 ML IV.SOLN 83 UNITS IV (22:30)
[2023-05-24] VITALS (9 sets, daily range): BP systolic 109–127; BP diastolic 57–71; PULSE 64–86; RESP 16–18; TEMP 36.2–37.2; O2SAT 95–98
--- NOTE | 2023-05-24 05:04 | PCM.PN.OB ---
Subjective Subjective Patient doing well without complaints. Tolerating PO. Ambulating and voiding without difficulty. feeding well. Denies chest pain, shortness of breath, calf pain/swelling, fevers, chills, lightheadedness. Objective Data Objective Data Vital Signs: Vital Signs Temp Pulse Resp BP Pulse Ox O2 Del Method 98.2 F 67 16 127/60 H 98 Room Air 05/24/23 04:17 05/24/23 04:18 05/24/23 04:17 05/24/23 04:18 05/23/23 22:27 05/24/23 04:17 Oxygen Delivery Method Room Air Weight: 180 lb Body Mass Index (BMI) 27.3 Intake & Output: Intake and Output for Last 24 Hours 05/22/23 05/23/23 05/24/23 23:59 23:59 23:59 Intake Total 1750.00 / 1750.00 250 / 250 Output Total 1150 / 1150 200 / 200 Balance 600.00 / 600.00 50 / 50 Lab / Micro Data 05/23/23 08:10 Labs: Laboratory Results - last 24 hr 05/23/23 08:05: Blood Type A NEGATIVE, Antibody Screen NEGATIVE 05/23/23 08:10: WBC 9.2, RBC 4.09 L, Hgb 12.4, Hct 37.1, MCV 90.7, MCH 30.3, MCHC 33.4, RDW Std Deviation 46.6 H, RDW Coeff of Heidi 14.0, Plt Count 186, MPV 10.6, Immature Gran % (Auto) 0.700, Neut % (Auto) 72.1 H, Lymph % (Auto) 21.2, [place] % (Auto) 4.8, Eos % (Auto) 0.7, Baso % (Auto) 0.5, Absolute Neuts (auto) 6.6, Absolute Lymphs (auto) 1.95, Nucleated RBC % 0, Syphilis Total Ab Non-reactive, Blood Type Cancelled, Antibody Screen Cancelled, Antibody Identification Cancelled 05/24/23 01:00: Screen NEGATIVE, Baby's Blood Type O POSITIVE, Baby's ASYA NEGATIVE ROS Constitutional Constitutional: Reports systems reviewed and no addt'l complaints, except as documented Cardiovascular Cardiovascular: Reports systems reviewed and no addt'l complaints, except as documented Respiratory/Chest Respiratory/Chest: Reports systems reviewed and no addt'l complaints, except as documented Gastrointestinal Gastrointestinal: Reports systems reviewed and no addt'l complaints, except as documented Physical Exam Const alert, oriented x3 and no apparent distress HEENT Head and Scalp: atraumatic Resp normal respiratory effort GI soft to palpation and non-tender Bimanual Exam - Vag & Uterus: uterus non-tender Uterus Palpation: uterus fundus firm (below Umbilicus) Assessment & Plan (1) Vaginal delivery: COMMENT: lorne iol postdates 41 girl Nisha PLAN: Plan s/p PPD # 1 1. routine post delivery care 2. breast feeding- support given 3. rh negative 4. rubella immune
[2023-05-24] MEDS: Naproxen 500 MG Tablet PO (05:54)
--- NOTE | 2023-05-24 10:40 | CASEMGMT ---
Social Work Assessment Labor and Delivery Unit Patient Address: [facility] [place] Phone number: [phone] Date of Referral: 05/24/23 Time of Referral:? 6:35 Referred By: Lawrence Murray Date of Intervention: 05/24/23? Time of Intervention:? 10:40 Reason for Referral: hx PPD History obtained from: medical records, mother of baby (MOB) Household composition: MOB reports she and FOWilliam live together in a home they own with their NB and daughter, Mildred. No current housing concerns. Patient's parent/guardian status: MOB reports she has been to [employer], for 12 years. CANDIE is actively involved with NB and other child, and is self-employed. MOB reports no concerns with DV, AOD use or MH for FOB. Medical History: JULI was engaged in care with [facility] beginning around 15 weeks. MOB reports this is her third that resulted in the of their second child, NB baby girl, Nisha. Nisha was born 05/23/23, weighing 3.72 kg, and Apgars 8/9. MOB report NB?s heel blacker will be Dr. Morrison. MOB explained CANDIE plans to get a vasectomy. Educational Status: MOB reports highest level of education is Bachelor?s degree, no learning concerns. ? 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 CANDIE is self-employed; no financial concerns reported. Supplies: MOB reports having all the supplies needed including a car seat, crib, clothes and diapers/wipes. Childcare/Caregiver(s): JULI plans to be on maternity leave for the 1300-4698 school year and is unsure about her plan to return. If JULI returns, JALEN will start going to [employer] at 18 months. MOB explained they have support from family, friends and their neighbors as well. Transportation: MOB report they have vehicles, no concerns. ?? Programs/Agencies Involved: ??MOB reports no community agency involvement and declined referrals. ? Children Services/Legal Issues: None reported??? Behavioral Health Issues: ??Mental Health History:? MOB reports history of PPD. MOB is engaged in individual counseling services with Britany Barrientos at a private practice. MOB explained her appointments are typically every 4 to 6 weeks, with her next appointment being this coming Friday. MOB reports no previous psych hospitalization or MH medication. Family/Social Stressors:? No stressors identified. Support Systems: MOB reports she is supported by FOB, family, friends and their neighbors. Depression/Shaken Baby/Safe Sleeping: SW educated MOB on depression/anxiety as well as shaken baby and safe sleep. MOB report NB will be sleeping in a crib in their nursery. SW provided MOB with educational information as well as resources on the topics. MOB report understanding and voice no other needs. SW encouraged MOB to contact OB or PCP if she is concerned with symptoms. ?? ASSESSMENT:? AYAN met with MOB and introduced herself and role as [facility] Watch [employer]. MOB in agreement to speak with SW. SW utilized open and close ended questions to gather information needed for an assessment. MOB report having supplies needed, identified supports and denies current community agency services, declining referrals. MOB reports history of PDD and is active with a counselor, Britany, with her next appointment scheduled for this coming Friday. AYAN educated MOB on safe sleep, shaken baby and PPD/A. AYAN also provided local resources for [facility]. AYAN updated RN of resources provided, no concerns. PLAN:? No other services requested or indicated. Gardenia Hartman INFORMATION SYSTEMS OPERATOR, MINO
--- NOTE | 2023-05-24 12:36 | CASEMGMT ---
Social Work SW inquired about AD documents; patient reports having HCPOA and LW completed. SW encouraged patient to bring in a copy to be placed on patient's chart. Patient voiced understanding. Gardenia HANSON, MINO
[2023-05-25] MEDS: Naproxen 500 MG Tablet PO (00:10)
[2023-05-25 02:15] VITALS: BP 121/73; PULSE 57; RESP 16; TEMP 36.3; O2SAT 97
[2023-05-25 02:18] VITALS: BP 121/73; PULSE 56
[2023-05-25] MEDS: Acetaminophen 500 MG Tablet 1000 MG PO (05:54)
[2023-05-25 08:30] VITALS: BP 108/69; PULSE 61; PULSE 62; O2SAT 95
[2023-05-25 08:40] VITALS: BP 108/69; PULSE 61; RESP 18; TEMP 36.2; O2SAT 95
--- NOTE | 2023-05-25 09:04 | PCM.PN.OB ---
Subjective Subjective Patient doing well without complaints. Tolerating PO. Ambulating and voiding without difficulty. Feeding well. Denies chest pain, shortness of breath, calf pain/swelling, fevers, chills, lightheadedness. Objective Data Objective Data Vital Signs: Vital Signs Temp Pulse Resp BP Pulse Ox O2 Del Method 97.2 F L 61 18 108/69 95 Room Air 05/25/23 08:40 05/25/23 08:40 05/25/23 08:40 05/25/23 08:40 05/25/23 08:40 05/25/23 08:40 Oxygen Delivery Method Room Air Weight: 180 lb Body Mass Index (BMI) 27.3 Intake & Output: Intake and Output for Last 24 Hours 05/23/23 05/24/23 05/25/23 23:59 23:59 23:59 Intake Total 1750.00 / 1750.00 250 / 250 Output Total 1150 / 1150 200 / 200 Balance 600.00 / 600.00 50 / 50 Lab / Micro Data 05/23/23 08:10 Physical Exam Const alert, oriented x3 and no apparent distress HEENT Head and Scalp: atraumatic Resp normal respiratory effort GI soft to palpation and non-tender Bimanual Exam - Vag & Uterus: uterus non-tender Uterus Palpation: uterus fundus firm (below Umbilicus) Assessment & Plan (1) Vaginal delivery: COMMENT: sm iol postdates 41 girl Nisha PLAN: s/p PPD # 2 1. routine post delivery care 2. breast feeding- support given 3. rh positive 4. rubella immune 5. d/c home (2) Rh negative state in antepartum period: COMMENT: Rhogam @ 28 weeks & PRN Bleeding
== END 2023-05-25 11:00 | disposition home or self-care (01) | DRG 807 ==
PROVIDERS: Admitting Provider Obstetrics & Gynecology; PCP Internal Medicine; Referring Provider Obstetrics & Gynecology; Visit Provider Obstetrics & Gynecology
DX: O48.0 Post-term pregnancy (principal); Z37.0 Single live birth; O69.81X0 Labor and delivery complicated by cord around neck, without compression, not applicable or unspecified; Z3A.41 41 weeks gestation of pregnancy
CPT/HCPCS: 59025; 59050; 85025; 85461; 86780; 86850; 86900; 86901; 99221; J7120; G0378; J2790

== ENCOUNTER 2023-06-30 11:35 | Outpatient (CLI) | payer OTHER, SELFPAY | END 2023-06-30 23:59 | disposition home or self-care (01) | LOC: LABSPEC 11:36 | PROVIDERS: PCP Internal Medicine; Referring Provider Registered Nurse; Visit Provider Registered Nurse | DX: N89.8 Other specified noninflammatory disorders of vagina (principal) | CPT/HCPCS: 87070; 87205 ==

== ENCOUNTER → 2024-04-06 | Outpatient (CLI) | payer OTHER, SELFPAY | END | disposition home or self-care (01) | PROVIDERS: PCP Internal Medicine; Referring Provider Physician Assistant; Visit Provider Physician Assistant | DX: R30.0 Dysuria (principal) | CPT/HCPCS: 87086; 87088; 87186 ==

== ENCOUNTER → 2024-07-05 | Outpatient (CLI) | payer OTHER, SELFPAY | END | disposition home or self-care (01) | LOC: LABSPEC 11:53 | PROVIDERS: PCP Internal Medicine; Referring Provider Obstetrics & Gynecology; Visit Provider Obstetrics & Gynecology | DX: R39.9 Unspecified symptoms and signs involving the genitourinary system (principal) | CPT/HCPCS: 87086; 87088; 87186 ==

== ENCOUNTER 2024-09-27 09:00 | Outpatient (RCR) | payer OTHER, SELFPAY ==
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
--- NOTE | 2024-09-27 17:46 | HP.PTDCSUM ---
Discharge Summary D/C summary: It has been my pleasure to treat JENNIFER HARRIS referred by Dr. Kesha Stiles DO, with the diagnosis of DYSURIA for a total of 9 visit(s). Discharge Date: 09/27/24 Please see the following information for a summary of their discharge status. Subjective Subjective: I FEEL LIKE MY LOWER AB'S ARE A LOT STRONGER NOW AND IT IS VERY TRANSFERABLE TO LAND. PATIENT REPORTS BEING ABLE TO DO MORE AGGRESSIVE LAND WORKOUTS WITHOUT ANY BACK PAIN NOW. NOT WAKING UP WITH ANY PELVIC PAIN EITHER. PATIENT REPORTS SHE IS PAINFREE WITH HER CURRENT ACTIVITY LEVEL BUT SHE HAS NOT BEEN DOING ANY RUNNING WORKOUT OUTS YET. SHE STATES SHE THINKS SHE KNOWS THE EX'S SHE NEEDS TO WORK INTO WHAT SHE WANTS TO DO NOW GRADUALLY. SHE REPORTS SHE WILL USE THE WATER EX'S NEEDED AT THIS POINT BUT THE LAND EX'S ARE FEELING REALLY GOOD. SHE REPORTS 100% IMPROVEMENT IN HER SYMPTOMS WITH CURRENT ACTIVITY LEVEL AND SHE PLANS TO TRY TO RETURN TO HER PRIOR ACTIVITIES GRADUALLY. Pain LOW BACK: Pain Intensity (Out of 10): 1 GROIN: Pain Intensity (Out of 10): 0 Overall Improvement % Improvement: 100 Objective Objective/Function: PATIENT WAS SEEN TODAY FOR RE-ASSESSMENT OF PROGRESS TOWARD THE SET PT GOALS AND THE NEED FOR FURTHER PHYSICAL THERAPY VS READINESS FOR DISCHARGE. PATIENT COMMUNICATED/DEMONSTRATED A GOOD UNDERSTANDING OF ALL INSTRUCTIONS GIVEN TODAY. SHE IS DEMONSTRATING GOOD POSTURE CONTROL AND BODY MECHANICS AND TOLERATING PROGRESSIVE RESISTIVE EX WELL. SHE IS INDEP WITH A HEP AND APPROPRIATE FOR AND AGREEALBE TO DISCHARGE. PHYSICIAN FOLLOW UP IS RECOMMENDED IF SHE IS UNABLE TO GRADUALLY RETURN TO HER PLOF. Goals Goal 1:: DECREASE C/O LUMBAR AND PELVIC PAIN BY AT LEAST 75% WITH DESIRED RUNNING AND LIFTING ACTIVITIES. Goal Progress: Progressing Goal 2:: PATIENT WILL HAVE FULL LUMBAR ROM WITHOUT C/O PAIN Goal Progress: Progressing Goal 3:: PATIENT WILL HAVE GOOD CORE STRENGTH Goal Progress: Goal Met Goal 4:: PATIENT WILL HAVE FULL EVELNYE HIP ROM WITH OP WITHOUT C/O PAIN Goal Progress: Progressing Goal 5:: PATIENT WILL INDEP WITH HEP Goal Progress: Goal Met Plan Plan: D/C TO INDEP EX. PATIENT AGREEABLE TO DISCHARGE. D/C Information d/c sentence: If there are questions or concerns regarding this patient's physical therapy, please feel free to call me at [phone]. Thank you for the referral of this patient. Sincerely, Deja Sanon, PT, Cert MDT Balance/Gait/Functional tests Improvement % Improvement: 100
== END 2024-09-27 19:00 | disposition home or self-care (01) ==
LOC: PT 09:00
PROVIDERS: PCP Family Medicine; Referring Provider Obstetrics & Gynecology; Visit Provider Obstetrics & Gynecology
DX: R30.0 Dysuria (principal)
CPT/HCPCS: 97113; 97162; 97530

== ENCOUNTER → 2024-10-11 | Outpatient (CLI) | payer OTHER, SELFPAY | END | disposition home or self-care (01) | LOC: LABSPEC 10:35 | PROVIDERS: PCP Family Medicine; Referring Provider Nurse Practitioner Family; Visit Provider Nurse Practitioner Family | DX: N89.8 Other specified noninflammatory disorders of vagina (principal) | CPT/HCPCS: 87070; 87205 ==